=== PATIENT | male | born 1960 | race Caucasian/White ===

== ENCOUNTER 2018-01-24 16:36 | Inpatient (IN) ==
--- NOTE | 2018-01-24 18:01 | ED ---
HPI General Chief Complaint: Psychiatric Symptoms Stated Complaint: psych eval/dbpd Time Seen by Provider: 01/24/18 17:29 Source: patient Mode of arrival: ambulatory Limitations: no limitations History of Present Illness HPI Narrative: 57-year-old male presents to the emergency room under a Simmons act initiated by police. Patient was at his facility when the police were called on him. He denies suicidal or homicidal ideation. States he just wants to go home. Patient is acutely psychotic and difficult to get any meaningful history from. He denies any medical complaints or pain. MD complaint: other Duration: constant History of same: Yes Relieving factors: none Exacerbating factors: none Associated psychiatric symptoms: none Associated symptoms: denies other symptoms Treatments prior to arrival: none Related Data Home Medications Medication Instructions Recorded Confirmed Benadryl 50 mg PO HS 01/24/18 01/24/18 Synthroid 0.1 mg PO DAILY 01/24/18 01/24/18 chlorpromazine 50 mg PO BID 01/24/18 01/24/18 chlorpromazine 200 mg PO BID 01/24/18 01/24/18 olanzapine 20 mg PO HS 01/24/18 01/24/18 propranolol 10 mg PO BID 01/24/18 01/24/18 Allergies Allergy/AdvReac Type Severity Reaction Status Date / Time No Known Allergies Allergy Uncoded 01/14/15 21:16 Review of Systems ROS: all other systems reviewed are negative PMFSH Social History Social History Substance History: No History of Abuse Second Hand Smoke Exposure: No Smoking Status: Never smoker How Often Do You Have a Drink Containing Alcohol: Never Recent Travel in [facility] within the Last 8 Weeks: No Recent Out of Country Travel within the Last 8 Weeks: No Immunization History Tetanus Immunization: Unable to Assess Hx Influenza Vaccine This Season: Unable to Assess Exam Narrative Exam Narrative: GENERAL: Well-nourished, well-developed patient. SKIN: Focused skin assessment warm/dry. HEAD: Normocephalic. EYES: No scleral icterus. No injection or drainage. NECK: Supple, trachea midline. No JVD or lymphadenopathy. CARDIOVASCULAR: Regular rate and rhythm without murmurs, gallops, or rubs. RESPIRATORY: Breath sounds equal bilaterally. No accessory muscle use. PSYCHIATRIC: No delusional thought processes. No hallucinations. Psychotic. Course Initial Documented Vital Signs Temperature 98.7 F 01/24/18 16:49 Pulse Rate 101 H 01/24/18 16:49 Respiratory Rate 18 01/24/18 16:49 Blood Pressure 125/86 01/24/18 16:49 Pulse Oximetry 95 01/24/18 16:49 Last Documented Vital Signs Temperature 98.7 F 01/24/18 17:35 Pulse Rate 101 H 01/24/18 17:35 Respiratory Rate 18 01/24/18 17:35 Blood Pressure 125/86 01/24/18 16:49 Pulse Oximetry 95 01/24/18 17:35 Medical Decision Making MDM Narrative Medical decision making narrative: 57-year-old male presents to the emergency room under Simmons act. He is acutely psychotic and difficult to obtain information from. He is refusing labs.Denies any medical complaints. He is medically cleared for psychiatric evaluation. Patient will be admitted to the psychiatric service. Medical Screen Exam Complete: Yes Emergency Medical Condition: Yes Differential Diagnosis Differential Diagnosis: Schizophrenia, medication noncompliance, bipolar disorder Discharge Plan Discharge Disposition Patient Disposition: 30 Still Patient Discharge Condition Condition: Stable Physicians Team ED Provider: Goldie Conte ED Midlevel Provider: Kathie Hernandez Primary Care Provider: Primary Care Cassy Walker Attending Provider: Jaya Vu Status ED Status: Admitted Patient
--- NOTE | 2018-01-24 18:18 | ED ---
HPI - Psych - General Source: patient Mode of arrival: ambulatory Limitations: altered mental status - History of Present Illness Duration: constant Relieving factors: none Exacerbating factors: none Associated symptoms: denies other symptoms Treatments prior to arrival: none - General Chief Complaint: Psychiatric Symptoms Stated Complaint: psych eval/dbpd Time Seen by Provider: 01/24/18 17:29 - History of Present Illness HPI Narrative: This is a 57-year-old single, male who presents to this facility under Simmons act for being aggressive with staff and other residents. Patient is known to this facility with several previous psychiatric admissions. His last one was from February 25 - April 21, 2015. Reviewed electronic medical record and discussed case with staff. Patient was assessed and J105. He is extremely poor historian. His speech is disorganized and illogical at times. He is perseverating on his hunger and has been heard referring to it any time anyone walks past the door of his room. Seems to be internally stimulated as of her him speaking to himself when no one was around. He stood in the doorway of his room repeating "mine" while looking into the nurses station as his belongings were sorted. (Ellie Moran) - Related Data Home Medications Medication Instructions Recorded Confirmed Benadryl 50 mg PO HS 01/24/18 01/24/18 Synthroid 0.1 mg PO DAILY 01/24/18 01/24/18 chlorpromazine 50 mg PO BID 01/24/18 01/24/18 chlorpromazine 200 mg PO BID 01/24/18 01/24/18 olanzapine 20 mg PO HS 01/24/18 01/24/18 propranolol 10 mg PO BID 01/24/18 01/24/18 Allergies Allergy/AdvReac Type Severity Reaction Status Date / Time No Known Allergies Allergy Uncoded 01/14/15 21:16 Review of Systems All other systems reviewed negative except as stated in HPI PMFSH - History History Provided By: Medical Record - Medical History Medical History: Medical History (Last Reviewed 01/24/18 @ 18:15 by LATOSHA Worley) Altered mental state Gait disturbance Intellectual disability Malnutrition Mental retardation Seizure Thrombocytopenia - Tobacco History Second Hand Smoke Exposure: No Smoking Status: Never smoker - Alcohol History How Often Do You Have a Drink Containing Alcohol: Never - Substance Use History Substance History: No History of Abuse - Travel History Recent Travel in the [place] Within the Last 8 Weeks: No Recent Travel Out of the Country Within the Last 8 Weeks: No - Immunization History Tetanus Immunization: Unable to Assess Hx Influenza Vaccine This Season: Unable to Assess Psychiatric History - Psychiatric History Psychiatric Treatment History: History of Psychiatric Treatment History of Inpatient Treatment: Yes Firearms in Home: No Physical Exam - General Limitations: no limitations General appearance: anxious Mental Status Examination Appearance: Dirty, Disheveled, Malodorous Consciousness: Alert, Vigilant Orientation: Person Motor Activity: Normal gait Speech: Rapid, Incoherent (At times) Language: Word salad (At times), Perseveration (On food) Fund of Knowledge: Poor Attention and Concentration: Easily distracted Mood: Anxious Affect: Anxious Thought Process & Associations: Goal directed (On food) Thought Content: Other (Unable to assess) Hallucination Type: Other (Unable to assess) Initial Documented Vital Signs Temperature 98.7 F 01/24/18 16:49 Pulse Rate 101 H 01/24/18 16:49 Respiratory Rate 18 01/24/18 16:49 Blood Pressure 125/86 01/24/18 16:49 Pulse Oximetry 95 01/24/18 16:49 Last Documented Vital Signs Temperature 98.7 F 01/24/18 17:35 Pulse Rate 101 H 01/24/18 17:35 Respiratory Rate 18 01/24/18 17:35 Blood Pressure 125/86 01/24/18 16:49 Pulse Oximetry 95 01/24/18 17:35 MDM - Psych - MDM Narrative Medical decision making narrative: Given the extent of the patient's disorganization and his current state I am admitting him to a locked inpatient psychiatric unit for further evaluation and treatment as deemed necessary. (Ellie Moran)
[2018-01-24] MEDS ORDERED: PROPRANOLOL 10 MG PO SCH (21:00)
[2018-01-24] MEDS: Propranolol 10 MG Tablet PO SCH (21:00)
[2018-01-25] MEDS: Levothyroxine 100 MCG Tablet PO SCH (05:26)
[2018-01-25] MEDS: Propranolol 10 MG Tablet PO SCH ×2 (08:20→21:44)
[2018-01-25] MEDS ORDERED: SYNTHROID 0.1 MG PO SCH (09:00)
--- NOTE | 2018-01-25 12:55 | P.HPPSY ---
Provisional Diagnosis Admission Date: January 24, 2018 18:07 Emmett I.: 1. Schizophrenia, paranoid type, acute exacerbation Emmett II.: Deferred Competence Certification of Person's Competence To Provide Express and Informed Consent I have personally examined Emiliano Dunlap, a person being served at [facility] on, January 25, 2018 [id number]. Express and informed consent means consent voluntarily given in writing, by a competent person, after sufficient explanation and disclosure of the subject matter involved to enable the person to make a knowing and willful decision without any element of force, fraud, deceit, duress, or other form of constraint or coercion. This person is 18 years of age or older, is not now known to be incompetent to consent to treatment with a guardian advocate, and does not have a health care surrogate or proxy currently making medical treatment decisions. I have found this person to be one of the following: [] Competent to provide express and informed consent, as defined above, for voluntary admission to this facility and is competent to provide express and informed consent for treatment. He/she has the consistent capacity to make well reasoned, willful, and knowing decisions concerning his or her medical or mental health treatment. The person fully and consistently understands the purpose of the admission for examination/placement and is fully capable of personally exercising all rights assured [place] [X] Incompetent to provide express and informed consent to voluntary admission, and this is incompetent to provide express and informed consent to treatment. The person must be transferred to involuntary status and a petition for a guardian advocate filed with the Circuit Court. [] Refusing to provide express and informed consent to voluntary admission but is competent to provide express and informed consent for treatment. The person must be discharged or transferred to involuntary status. Form shall be completed within 24 hours of a person's arrival at the receiving facility and filed in the clinical record of each person: 1. Admitted on a voluntary basis 2. Permitted to provide express and informed consent to his/her own treatment 3. Allowed to transfer from involuntary to voluntary status 4. Prior to permitting a person to consent to his or her own treatment after having been previously found incompetent to consent to treatment. History of Present Illness Capacity: Lacks capacity Chief Complaint: Psychosis History of Present Illness: Mr. Dunlap is a 57-year-old male with a history of schizophrenia who presents under a Simmons act by law enforcement alleging that the patient was "openly defiant to staff" at his assisted living facility and that "his actions were disrupting the facility and other residents." Patient was evaluated by the psychiatric nurse practitioner in the emergency department. Reviewing the EMR, I note that the patient was admitted most recently here under my care in 2014, after which the patient was sent to the [facility]. Patient seen and examined. Chart reviewed. Case discussed with nursing staff. Case discussed with counselor who has reached out the patient's facility. Per counselor, patient was allegedly making threats of harm to self and other residents prior to being Simmons acted, although it is unclear what the antecedents of this alleged behavior were. On my examination today, the patient presents as hypoverbal and disheveled. Mood is "fine, yes." He denies any hopelessness, worthlessness or guilt. He denies any racing thoughts or other manic symptoms. He denies any audiovisual hallucinations but appears internally preoccupied. He denies any suicidal or homicidal ideation, intent or plan although it is unclear whether the patient is reliable to contract for safety. No noble delusional material. Patient is not interested in extended interview and asks to be left alone so that he can get some sleep. No acute physical complaints. Past psychiatric history: The patient has a history of schizophrenia with inpatient and states psychiatric hospitalization as noted above. The patient denies any recent psychiatric admissions or suicide attempts, although he is likely an unreliable historian. He is unable to tell me who his outpatient psychiatrist is. Family history: Patient is unsure of his family psychiatric history. Chemical dependency history: Patient denies any abuse of drugs or alcohol. Social history: Patient is a resident of [facility]. Limited social history from patient as he answers frequently "I am not sure." Spoke with patient's brother Dr. Ranjeet Dunlap and [id number] Suly at the numbers listed in the EMR. Dr. Dunlap reports that he last saw the patient a couple of weeks ago shortly after he had been discharged from the [facility] to [facility]. He found the patient to be paranoid and delusional believing that people were looking at him through the window. He was dismissive of family members. He was frankly responding to internal stimuli. Dr. Dunlap likens his state during that encounter as to when he was completely unmedicated. He is supportive of inpatient psychiatric hospitalization at this time for stabilization. We discussed the patient's legal status and plan for [place] court next . He provides consent for treatment plan as outlined below. I spent approximately 15 minutes in telephone consultation with Dr. Dunlap. - Inpatient Certification I certify that the inpatient services were ordered in accordance with Medicare regulations governing the order. This includes certification that hospital inpatient services are reasonable and necessary and in the case of services not specified as inpatient-only under 42 CFR 419.22(n), that they are appropriately provided as inpatient services in accordance to with the 2-midnight benchmark under 43 CFR 412.3(e) I certify that inpatient psychiatric hospital services are medically necessary. Evaluation and treatment and/or diagnostic testing are expected to improve the patient's condition. The patient needs on a daily basis, active treatment furnished directly by or requiring the supervision of inpatient psychiatric facility personnel. Estimated Total Length of Stay (Days): 9 (7-9) Plans for Post Hospital Care: Not yet determined Review of Systems unobtainable due to mental condition PMFSH - Medical History Medical History: Medical History (Last Reviewed 01/24/18 @ 21:19 by Tierra Maldonado RN) Altered mental state Gait disturbance Intellectual disability Malnutrition Mental retardation Seizure Thrombocytopenia Quality Measures - Patient Strengths Patient's strengths (minimum of 2): Supportive family. In a monitored setting. Medications and Allergies Active Medications: Active Medications Al Hydrox/Mg Hydrox/Simethicone (Mag-Al Plus Susp Liq) 30 ml PO Q6H PRN PRN Reason: DYSPEPSIA Levothyroxine Sodium (Synthroid) 100 mcg PO DAILY@0600 [facility] Last Admin: 01/25/18 05:26 Dose: 100 mcg Propranolol HCl (Inderal) 10 mg PO BID [facility] Last Admin: 01/25/18 08:20 Dose: 10 mg Allergies Allergy/AdvReac Type Severity Reaction Status Date / Time No Known Allergies Allergy Uncoded 01/14/15 21:16 Home Medications Medication Instructions Recorded Confirmed Type Benadryl 50 mg PO HS 01/24/18 01/24/18 History Synthroid 0.1 mg PO DAILY 01/24/18 01/24/18 History chlorpromazine 50 mg PO BID 01/24/18 01/24/18 History chlorpromazine 200 mg PO BID 01/24/18 01/24/18 History olanzapine 20 mg PO HS 01/24/18 01/24/18 History propranolol 10 mg PO BID 01/24/18 01/24/18 History Results - Labs CBC & Chem 7: 01/25/18 13:53 01/25/18 13:53 Labs: No laboratories were obtained in the emergency department. I have ordered a stat CBC, CMP and TSH as well as an EKG. Exam Vital signs: Vital Signs 01/24/18 16:49 01/24/18 17:35 01/24/18 21:43 Temperature 98.7 F 98.7 F 97.8 F Pulse Rate 101 H 101 H 79 Respiratory Rate 18 18 18 Blood Pressure 125/86 117/76 Pulse Oximetry 95 95 97 01/25/18 06:08 Temperature 97.2 F L Pulse Rate 84 Respiratory Rate 18 Blood Pressure 120/72 Pulse Oximetry 96 Intake & Output 01/24/18 01/25/18 01/25/18 18:59 06:59 18:59 Weight 72.575 kg 60.1 kg Other: Weight On Admission 60.1 kg Narrative: Physical examination completed by ED provider. On my examination today, the patient appears to be in no acute physical distress. No motor abnormalities noted. Labs and vital signs reviewed. Mental Status Examination Appearance: Disheveled Consciousness: Alert Orientation: Person (At least) Motor Activity: Other (No motor abnormalities noted) Speech: Hesitant Language: Other (Vague) Fund of Knowledge: Adequate Attention and Concentration: Easily distracted Memory: Impaired (Psychosis likely interferes) Mood: Other (Calm) Affect: Flat Thought Process & Associations: Other (Slowed) Thought Content: Thought blocking, Other (Poverty of thought) Hallucination Type: Other (Internally stimulated) Delusion Type: None Suicidal Ideation: No Suicidal Plan: No Suicidal Intention: No Homicidal Ideation: No Homicidal Plan: No Homicidal Intention: No Insight: Poor Judgment: Poor Assessment and Plan - Assessment (1) Schizophrenia Code(s): F20.9 - Schizophrenia, unspecified Status: Acute - Plan Plan: 57-year-old male with psychiatric history as detailed above who presents under a Simmons act by law enforcement. On my examination today, the patient presents as quite hypoverbal and flat. Collateral information obtained by the counselor from patient's facility suggests that he may have been threatening self and others. Collateral information from patient's brother indicates that the patient appeared to be decompensated with respect to his psychotic illness during recent contact a few weeks ago. Patient requires psychiatric hospitalization at this time for safety, observation and stabilization. Admit inpatient. Involuntary status. I have completed first opinion. Consult for second opinion. Request healthcare surrogate and guardian advocate. MAR from patient's facility reviewed. I will plan to discontinue patient's chlorpromazine and replace with a different typical antipsychotic, most likely Trilafon, Navane or Loxapine. I will continue patient's Zyprexa and Benadryl as ordered. Continue Inderal and Synthroid. Follow-up TSH along with other laboratories. Ativan as needed for anxiety. Cogentin as needed for EPS. Vitals every shift. Counselor to see. Disposition planning. Estimated length of stay: 7-9 days. Justification for Continued Inpatient Stay: As above Discharge Planning: Pending psychiatric stabilization. Request Healthcare Surrogate/Guardian Advocate?: Yes (1) Schizophrenia Qualifiers: Schizophrenia type: paranoid schizophrenia Qualified Code(s): F20.0 - Paranoid schizophrenia
[2018-01-25 14:14] LABS: Baso # (Auto) 0.1 th/mm3 (0.0-0.2); Baso % (Auto) 1.1 % (0.0-2.0); Eos # (Auto) 0.2 th/mm3 (0.0-0.4); Eos % (Auto) 3.3 % (0.0-4.0); Hematocrit 38.8 % (39.0-51.0); Hemoglobin 13.1 gm/dL (13.0-17.0); Lymph # (Auto) 1.3 th/mm3 (1.0-4.8); Lymph % (Auto) 17.8 % (9.0-44.0); Mean Corpuscular HGB Conc 33.8 % (32.0-36.0); Mean Corpuscular Volume 88.8 fL (80.0-100.0); Mean Platelet Volume 9.7 fL (7.0-11.0); Mono # (Auto) 0.6 th/mm3 (0.0-0.9); Neut % (Auto) 69.8 % (16.0-70.0); Platelet Count 229 th/mm3 (150-450); Red Blood Count 4.37 mil/mm3 (4.50-5.90); Red Cell Distribution Width 13.7 % (11.6-17.2); White Blood Count 7.1 th/mm3 (4.0-11.0)
[2018-01-25 14:29] LABS: Albumin 3.7 g/dL (3.4-5.0); Anion Gap 7 meq/L (5-15); Aspartate Aminotransferase 15 U/L (15-37); Blood Urea Nitrogen 12 mg/dL (7-18); Calcium 9.1 mg/dL (8.5-10.1); Carbon Dioxide 26.8 meq/L (21.0-32.0); Chloride 108 meq/L (98-107); Glomerular Filtration Rate 86 mL/min (>89); Glucose,Random 67 mg/dL (74-106); Potassium 4.1 meq/L (3.5-5.1); Sodium 142 meq/L (136-145)
[2018-01-25] MEDS ORDERED: Benztropine Inj 2 MG/2 ML Ampul IM PRN (14:35)
[2018-01-25 14:39] LABS: Alanine Aminotransferase 21 U/L (12-78); Alkaline Phosphatase 57 U/L (45-117)
[2018-01-25] MEDS ORDERED: Dextrose 50% in Water 50 ML Vial IV.PUSH PRN (15:05)
[2018-01-25] MEDS: LORazepam 1 MG Tablet PO PRN (15:49)
[2018-01-25] MEDS: Acetaminophen 325 MG Tablet PO PRN (17:31)
[2018-01-25] MEDS: OLANZapine 10 MG Tablet PO SCH (21:45)
[2018-01-26] MEDS: Levothyroxine 100 MCG Tablet PO SCH (06:08)
[2018-01-26] MEDS: Propranolol 10 MG Tablet PO SCH ×2 (09:21→21:15)
[2018-01-26] MEDS: Acetaminophen 325 MG Tablet PO PRN ×2 (10:11→15:55)
[2018-01-26 10:45] LABS: Carbon Dioxide 31.1 meq/L (21.0-32.0); Potassium 4.2 meq/L (3.5-5.1)
[2018-01-26 10:46] LABS: Chol/HDL Ratio 4.52 Ratio; HDL Cholesterol 32.9 mg/dL (40.0-60.0)
--- NOTE | 2018-01-26 13:02 | ECG ---
Date Performed: 01/25/2018 Time Performed: 13:37:41 PTAGE: 57 years EKG: Sinus rhythm ARTIFACT ABNORMAL ECG Since PREVIOUS TRACING , no significant change noted PREVIOUS TRACIN01/15/2015 16.35 DOCTOR: Moy Ennis Interpretating Date/Time 01/26/2018 13:01:52
--- NOTE | 2018-01-26 14:17 | P.PNPSY ---
Subjective Chief Complaint: Psychosis Remarks: Patient is seen in day room with floor staff, patient continues diffusely confused and wandering somewhat intrusive. Chart reviewed. Patient compliant medications. So far he is tolerating the Navane without difficulty. When asked about voices he became quite defensive somewhat irritable with me and then walked away for now continue treatment Review of Systems All other systems reviewed negative except as stated in HPI Mental Status Examination Appearance: Disheveled Consciousness: Alert Orientation: Person (At least) Motor Activity: Other (No motor abnormalities noted) Speech: Hesitant Language: Other (Vague) Fund of Knowledge: Adequate Attention and Concentration: Easily distracted Memory: Impaired (Psychosis likely interferes) Mood: Other (Calm) Affect: Flat Thought Process & Associations: Other (Slowed) Thought Content: Thought blocking, Other (Poverty of thought) Hallucination Type: Other (Internally stimulated) Delusion Type: None Suicidal Ideation: No Suicidal Plan: No Suicidal Intention: No Homicidal Ideation: No Homicidal Plan: No Homicidal Intention: No Insight: Poor Judgment: Poor Assessment and Plan - Assessment (1) Schizophrenia Code(s): F20.9 - Schizophrenia, unspecified Status: Acute - Plan Plan: Patient remains quite psychotic irritable paranoid, complaint medication Justification for Continued Inpatient Stay: At this time patient would decompensate a place to the lower level of care Discharge Planning: To be determined Request Healthcare Surrogate/Guardian Advocate?: Yes (1) Schizophrenia Qualifiers: Schizophrenia type: paranoid schizophrenia Qualified Code(s): F20.0 - Paranoid schizophrenia
--- NOTE | 2018-01-26 14:37 | P.CONPSY ---
Provisional Diagnosis Admission Date: January 24, 2018 18:07 [place] I.: 1. Schizophrenia, paranoid type, acute exacerbation [place] II.: Deferred History of Present Illness Service: Psychiatry Primary Care Provider: No Primary Care Physician Family Provider: No Primary Care Physician History of Present Illness: Mr. Dunlap is a 57-year-old male with a history of schizophrenia who presents under a Simmons act by law enforcement alleging that the patient was "openly defiant to staff" at his assisted living facility and that "his actions were disrupting the facility and other residents." Patient was evaluated by the psychiatric nurse practitioner in the emergency department. Reviewing the EMR, I note that the patient was admitted most recently here under my care in 2014, after which the patient was sent to the [facility]. Patient seen and examined. Chart reviewed. Case discussed with nursing staff. Case discussed with counselor who has reached out the patient's facility. Per counselor, patient was allegedly making threats of harm to self and other residents prior to being Simmons acted, although it is unclear what the antecedents of this alleged behavior were. On my examination today, the patient presents as hypoverbal and disheveled. Mood is "fine, yes." He denies any hopelessness, worthlessness or guilt. He denies any racing thoughts or other manic symptoms. He denies any audiovisual hallucinations but appears internally preoccupied. He denies any suicidal or homicidal ideation, intent or plan although it is unclear whether the patient is reliable to contract for safety. No noble delusional material. Patient is not interested in extended interview and asks to be left alone so that he can get some sleep. No acute physical complaints. The patient is a 57-year-old single, male who presents to this facility under Simmons act for being aggressive with staff and other residents. Patient is known to this facility with several previous psychiatric admissions. His last one was from February 25 - April 21, 2015. Patient was consulted to me for second opinion he is extremely poor historian. His speech is disorganized and illogical at times. He is perseverating on his hunger and has been heard referring to it any time anyone walks past the door of his room. Seems to be internally stimulated as of her him speaking to himself when no one was around. He stood in the doorway of his room repeating "mine" while looking into the nurses station as his belongings were sorted. ON LICENSE OF [facility] - History History Provided By: Patient, Medical Record - Medical History Medical History: Medical History (Last Reviewed 01/24/18 @ 21:19 by Tierra Maldonado RN) Altered mental state Gait disturbance Intellectual disability Malnutrition Mental retardation Seizure Thrombocytopenia - Tobacco History Tobacco Use In Past 30 Days: No - Substance Use History Substance History: No History of Abuse - Travel History Recent Travel in the [place] Within the Last 8 Weeks: No Recent Travel Out of the Country Within the Last 8 Weeks: No - Immunization History Tetanus Immunization: Unable to Assess Hx Influenza Vaccine This Season: Unable to Assess Medications and Allergies Active Medications: Active Medications Acetaminophen (Tylenol) 650 mg PO Q4H PRN PRN Reason: Pain 1-5 or Temp >101F Last Admin: 01/26/18 10:11 Dose: 650 mg Al Hydrox/Mg Hydrox/Simethicone (Mag-Al Plus Susp Liq) 30 ml PO Q6H PRN PRN Reason: DYSPEPSIA Al Hydroxide/Mg Hydroxide (Milk Of Magnesia Liq) 30 ml PO Q12H PRN PRN Reason: Mild Constipation Benztropine Mesylate (Cogentin) 1 mg PO Q12H PRN PRN Reason: EXTRA PYRAMIDAL SYMPTOMS Benztropine Mesylate (Cogentin Inj) 1 mg IM Q12H PRN PRN Reason: EXTRA PYRAMIDAL SYMPTOMS Dextrose (D50w Vial) 50 ml IV.PUSH UNSCH PRN PRN Reason: PER HYPOGLYCEMIA PROTOCOL Diphenhydramine HCl (Benadryl) 50 mg PO [facility] Last Admin: 01/25/18 21:44 Dose: 50 mg Glucagon (Glucagon Inj) 1 mg OTHER PRN PRN PRN Reason: for Hypoglycemia Protocol Levothyroxine Sodium (Synthroid) 100 mcg PO DAILY@0600 [facility] Last Admin: 01/26/18 06:08 Dose: 100 mcg Lorazepam (Ativan) 1 mg PO Q6H PRN PRN Reason: MODERATE TO SEVERE ANXIETY Last Admin: 01/25/18 15:49 Dose: 1 mg Lorazepam (Ativan Inj) 1 mg IM Q6H PRN PRN Reason: MODERATE TO SEVERE ANXIETY Olanzapine (Zyprexa) 20 mg PO [facility] Last Admin: 01/25/18 21:45 Dose: 20 mg Propranolol HCl (Inderal) 10 mg PO BID [facility] Last Admin: 01/26/18 09:21 Dose: 10 mg Thiothixene (Navane) 2 mg PO DAILY@ [facility] Last Admin: 01/26/18 09:21 Dose: 2 mg Allergies Allergy/AdvReac Type Severity Reaction Status Date / Time No Known Allergies Allergy Uncoded 01/14/15 21:16 Home Medications Medication Instructions Recorded Confirmed Type Benadryl 50 mg PO HS 01/24/18 01/24/18 History Synthroid 0.1 mg PO DAILY 01/24/18 01/24/18 History chlorpromazine 50 mg PO BID 01/24/18 01/24/18 History chlorpromazine 200 mg PO BID 01/24/18 01/24/18 History olanzapine 20 mg PO HS 01/24/18 01/24/18 History propranolol 10 mg PO BID 01/24/18 01/24/18 History Exam Vital signs: Vital Signs 01/25/18 18:11 01/26/18 06:00 Temperature 98.2 F 98.0 F Pulse Rate 86 78 Respiratory Rate 18 18 Blood Pressure 111/67 111/59 L Pulse Oximetry 99 98 Mental Status Examination Appearance: Disheveled Consciousness: Alert Orientation: Person (At least) Motor Activity: Other (No motor abnormalities noted) Speech: Hesitant Language: Other (Vague) Fund of Knowledge: Adequate Attention and Concentration: Easily distracted Memory: Impaired (Psychosis likely interferes) Mood: Other (Calm) Affect: Flat Thought Process & Associations: Other (Slowed) Thought Content: Thought blocking, Other (Poverty of thought) Hallucination Type: Other (Internally stimulated) Delusion Type: None Suicidal Ideation: No Suicidal Plan: No Suicidal Intention: No Homicidal Ideation: No Homicidal Plan: No Homicidal Intention: No Insight: Poor Judgment: Poor Assessment and Plan - Assessment (1) Schizophrenia Code(s): F20.9 - Schizophrenia, unspecified Status: Acute - Plan Plan: I have seen and examined this patient, reviewed documentation, I agree and concur with Dr. William assessment and plan. Consult appreciated. Justification for Continued Inpatient Stay: continue admission Request Healthcare Surrogate/Guardian Advocate?: Yes (1) Schizophrenia Qualifiers: Schizophrenia type: paranoid schizophrenia Qualified Code(s): F20.0 - Paranoid schizophrenia
[2018-01-26 14:41] LABS: Hemoglobin A1c 5.6 % (4.3-6.0)
[2018-01-26] MEDS: OLANZapine 10 MG Tablet PO SCH (21:16)
[2018-01-27] MEDS: Levothyroxine 100 MCG Tablet PO SCH (06:16)
[2018-01-27] MEDS: Propranolol 10 MG Tablet PO SCH ×2 (08:42→20:50)
--- NOTE | 2018-01-27 11:15 | P.PNPSY ---
Subjective Chief Complaint: Psychosis Remarks: Pt seen and discussed with staff. Chart reviewed. Pt was admitted due to paranoia and aggressive behavior and threats to harm others. He denies SI/HI today. Staff report that pt has been disorganized and engaging in bizarre behavior on unit. He has been disengaged and guarded with staff. He is compliant with medications. No SI/HI Mental Status Examination Appearance: Disheveled Consciousness: Alert Orientation: Person (At least) Motor Activity: Other (No motor abnormalities noted) Speech: Hesitant Language: Other (Vague) Fund of Knowledge: Adequate Attention and Concentration: Easily distracted Memory: Impaired (Psychosis likely interferes) Mood: Other (Calm) Affect: Flat Thought Process & Associations: Disorganized, Other (Slowed) Thought Content: Thought blocking, Other (Poverty of thought) Hallucination Type: Other (Internally stimulated) Delusion Type: None Suicidal Ideation: No Suicidal Plan: No Suicidal Intention: No Homicidal Ideation: No Homicidal Plan: No Homicidal Intention: No Insight: Poor Judgment: Poor Assessment and Plan - Assessment (1) Schizophrenia Code(s): F20.9 - Schizophrenia, unspecified Status: Acute - Plan Plan: Continue current tx plan Justification for Continued Inpatient Stay: impairments in reality testing Request Healthcare Surrogate/Guardian Advocate?: Yes (1) Schizophrenia Qualifiers: Schizophrenia type: paranoid schizophrenia Qualified Code(s): F20.0 - Paranoid schizophrenia
[2018-01-27] MEDS: Acetaminophen 325 MG Tablet PO PRN ×2 (13:07→19:46)
[2018-01-27] MEDS: OLANZapine 10 MG Tablet PO SCH (20:49)
[2018-01-28] MEDS: Levothyroxine 100 MCG Tablet PO SCH (06:32)
[2018-01-28] MEDS: Propranolol 10 MG Tablet PO SCH ×2 (08:39→21:14)
--- NOTE | 2018-01-28 10:56 | P.PNPSY ---
Subjective Chief Complaint: Psychosis Remarks: PT seen and discussed with staff. He remains bizarre and disorganized in thought process. He rambles with pressured, nonsensical speech. He had to be redirected due to coming out of room naked. He is compliant with medications. Mental Status Examination Appearance: Disheveled Consciousness: Alert Orientation: Person (At least) Motor Activity: Other (No motor abnormalities noted) Speech: Hesitant Language: Other (Vague) Fund of Knowledge: Adequate Attention and Concentration: Easily distracted Memory: Impaired Mood: Other (Calm) Affect: Flat Thought Process & Associations: Disorganized Thought Content: Bizarre thinking Hallucination Type: Other (Internally stimulated) Delusion Type: None Suicidal Ideation: No Suicidal Plan: No Suicidal Intention: No Homicidal Ideation: No Homicidal Plan: No Homicidal Intention: No Insight: Poor Judgment: Poor Assessment and Plan - Assessment (1) Schizophrenia Code(s): F20.9 - Schizophrenia, unspecified Status: Acute - Plan Plan: Continue current tx plan Justification for Continued Inpatient Stay: impairments in self care and reality testing Request Healthcare Surrogate/Guardian Advocate?: Yes (1) Schizophrenia Qualifiers: Schizophrenia type: paranoid schizophrenia Qualified Code(s): F20.0 - Paranoid schizophrenia
[2018-01-28] MEDS: Acetaminophen 325 MG Tablet PO PRN (11:37)
[2018-01-28] MEDS: OLANZapine 10 MG Tablet PO SCH (21:14)
[2018-01-28] MEDS: LORazepam 1 MG Tablet PO PRN (23:24)
[2018-01-29] MEDS: Levothyroxine 100 MCG Tablet PO SCH (05:05)
[2018-01-29] MEDS: Propranolol 10 MG Tablet PO SCH ×2 (08:19→20:35)
--- NOTE | 2018-01-29 10:38 | P.PNPSY ---
Subjective Chief Complaint: Psychosis Remarks: Patient seen and examined with counselor and nurse. Chart reviewed. Case discussed with nursing staff. Patient noted by nurse to have mumbled and garbled speech. When he does speak clearly, this is primarily echolalia. He is noted to be disheveled and dirty and has been hoarding papers and dog food dough mixer items in his room. He also ran down the hallway naked per nursing staff. When I initially endeavor to examined the patient he is in the bathroom. He has reportedly been there for some time. He is resistant to coming out. He finally does go to his room, where I see patient with staff. He remains disheveled. He tells me he does not want to speak this morning. He appears internally preoccupied and is paranoid. He denies any SI or HI but seems unreliable to contract for safety. No reported side effects from medications. No physical complaints. I do not appreciate any motoric abnormalities, but the nursing staff reports that patient has had some tongue rolling movements. I have requested that nurse provide the patient with mello Che to see if this helps with the movements. Floor staff also brings to my attention that the patient left several bloody toilet tissues in the bathroom , and he may have bleeding per rectum. I will consult the hospitalist for this issue. Vital Signs Pulse Resp BP Pulse Ox 01/29/18 06:00 79 18 128/75 95 01/28/18 17:39 104 H 17 136/70 97 Intake and Output 01/28/18 01/29/18 01/29/18 22:59 06:59 14:59 Other: Weight 60.8 kg Labs reviewed. No new labs. Review of Systems unobtainable due to mental condition Mental Status Examination Appearance: Disheveled Consciousness: Alert Orientation: Person Motor Activity: Other (I can appreciate no motor abnormalities) Speech: Hesitant Language: Other (Rambling, some echolalia) Fund of Knowledge: Adequate Attention and Concentration: Easily distracted Memory: Impaired (Psychosis interferes) Mood: Anxious Affect: Blunt, Anxious Thought Process & Associations: Loose associations, Tangential Thought Content: Bizarre thinking Hallucination Type: Other (Remains internally stimulated) Delusion Type: Paranoid Suicidal Ideation: No Suicidal Plan: No Suicidal Intention: No Homicidal Ideation: No Homicidal Plan: No Homicidal Intention: No Insight: Poor Judgment: Poor Assessment and Plan - Assessment (1) Schizophrenia Code(s): F20.9 - Schizophrenia, unspecified Status: Acute - Plan Plan: Titrate Navane to 3mg TID to target psychosis. Continue Zyprexa as ordered. Provide with Cogentin p.r.n. now. To consider scheduled anticholinergic if motoric side effects become more evident or problematic. Consult hospitalist for possible bleeding per rectum. Check CBC and stool guaiac. Continue to monitor on the inpatient unit. Continue other medications and care as ordered. Justification for Continued Inpatient Stay: Med changes. Impairment in reality construction. High risk for decompensation in less restrictive environment. Discharge Planning: Pending psychiatric stabilization Request Healthcare Surrogate/Guardian Advocate?: Yes (1) Schizophrenia Qualifiers: Schizophrenia type: paranoid schizophrenia Qualified Code(s): F20.0 - Paranoid schizophrenia
--- NOTE | 2018-01-29 13:50 | P.CON ---
History of Present Illness Service: [facility] Consult date: 01/29/18 Requesting Physician: Jaya Vu Reason for Consult: Rectal Bleeding Primary Care Provider: No Primary Care Physician Family Provider: No Primary Care Physician Chief Complaint: "Nothing" History of Present Illness: Patient is a 57-year-old male who denies any medical or surgical history who initially came into the hospital as a Simmons act initiated by police for aggressive behavior with staff and residents in his facility. Patient is admitted to inpatient psychiatry unit for further evaluation. Consulted for rectal bleed. Patient seen today laying in bed. Nursing states that he was in the bathroom for about 20 minutes this morning and when he stood up drips of blood is coming out of his rectum and he was walking around with. Patient denies the incident. States he does not want to be seen or examined. States that nothing is wrong with his rectum. Patient states "I do not want you to examine me or touch." Appears aggressive and irritable. Denies pain/ discomfort. Denies bleeding. Review of Systems unobtainable due to mental condition PMFSH - History History Provided By: Patient, Medical Record - Medical / Surgical Hx Neg / Unobtainable Surgical History: Unable to Obtain - Medical History Medical History: Medical History (Last Updated 01/29/18 @ 16:51 by LATOSHA Edwards) Altered mental state Gait disturbance Intellectual disability Malnutrition Mental retardation Patient denies medical problems Seizure Thrombocytopenia - Family History Family History: Family History (Last Updated 01/29/18 @ 16:51 by LATOSHA Edwards) Other Patient denies significant medical history - Tobacco History Tobacco Use In Past 30 Days: No - Substance Use History Substance History: No History of Abuse - Travel History Recent Travel in the [facility] Within the Last 8 Weeks: No Recent Travel Out of the Country Within the Last 8 Weeks: No - Immunization History Tetanus Immunization: Unable to Assess Hx Influenza Vaccine This Season: Unable to Assess Medications and Allergies Active Medications: Active Medications Acetaminophen (Tylenol) 650 mg PO Q4H PRN PRN Reason: Pain 1-5 or Temp >101F Last Admin: 01/28/18 11:37 Dose: 650 mg Al Hydrox/Mg Hydrox/Simethicone (Mag-Al Plus Susp Liq) 30 ml PO Q6H PRN PRN Reason: DYSPEPSIA Al Hydroxide/Mg Hydroxide (Milk Of Magnesia Liq) 30 ml PO Q12H PRN PRN Reason: Mild Constipation Benztropine Mesylate (Cogentin) 1 mg PO Q12H PRN PRN Reason: EXTRA PYRAMIDAL SYMPTOMS Last Admin: 01/29/18 10:33 Dose: 1 mg Benztropine Mesylate (Cogentin Inj) 1 mg IM Q12H PRN PRN Reason: EXTRA PYRAMIDAL SYMPTOMS Dextrose (D50w Vial) 50 ml IV.PUSH UNSCH PRN PRN Reason: PER HYPOGLYCEMIA PROTOCOL Diphenhydramine HCl (Benadryl) 50 mg PO [facility] Last Admin: 01/28/18 21:14 Dose: 50 mg Glucagon (Glucagon Inj) 1 mg OTHER PRN PRN PRN Reason: for Hypoglycemia Protocol Levothyroxine Sodium (Synthroid) 100 mcg PO DAILY@0600 [facility] Last Admin: 01/29/18 05:05 Dose: 100 mcg Lorazepam (Ativan) 1 mg PO Q6H PRN PRN Reason: MODERATE TO SEVERE ANXIETY Last Admin: 01/28/18 23:24 Dose: 1 mg Lorazepam (Ativan Inj) 1 mg IM Q6H PRN PRN Reason: MODERATE TO SEVERE ANXIETY Olanzapine (Zyprexa) 20 mg PO [facility] Last Admin: 01/28/18 21:14 Dose: 20 mg Propranolol HCl (Inderal) 10 mg PO BID [facility] Last Admin: 01/29/18 08:19 Dose: 10 mg Thiothixene (Navane) 3 mg PO DAILY@,, [facility] Allergies Allergy/AdvReac Type Severity Reaction Status Date / Time No Known Allergies Allergy Uncoded 01/14/15 21:16 Home Medications Medication Instructions Recorded Confirmed Type Benadryl 50 mg PO HS 01/24/18 01/24/18 History Synthroid 0.1 mg PO DAILY 01/24/18 01/24/18 History chlorpromazine 50 mg PO BID 01/24/18 01/24/18 History chlorpromazine 200 mg PO BID 01/24/18 01/24/18 History olanzapine 20 mg PO HS 01/24/18 01/24/18 History propranolol 10 mg PO BID 01/24/18 01/24/18 History Physical Exam Vital signs: Vital Signs 01/28/18 17:39 01/29/18 06:00 Pulse Rate 104 H 79 Respiratory Rate 17 18 Blood Pressure 136/70 128/75 Pulse Oximetry 97 95 Intake & Output 01/28/18 01/29/18 01/29/18 18:59 06:59 18:59 Weight 60.8 kg Narrative: GENERAL: This is a thin appearing male. Irritable. Agitated with questions. SKIN: Warm and dry. HEENT: Normocephalic. Nose without bleeding. Airway patent. MUSCULOSKELETAL: Extremities without clubbing, cyanosis, or edema. NEUROLOGICAL: Awake and alert. Moves all extremities. Normal speech. Assessment and Plan - Plan Patient is a 57-year-old male who denies any medical or surgical history who initially came into the hospital as a Simmons act initiated by police for aggressive behavior with staff and residents in his facility. Patient is admitted to inpatient psychiatry unit for further evaluation. Consulted for rectal bleed. Schizophrenia -Managed by psychiatry team Rectal Bleed -Unable to examine -H/H within normal yesterday -Recheck tomorrow -Check stool for Hemoccult -Anusol for possible hemorrhoid DVT prop ambulatory Code Status: Full code Discussed Condition With: Nurse Discharge Planning: DC disposition by primary team
[2018-01-29] MEDS: Senna/Docusate Sodium 8.6/50 MG Tablet PO SCH ×2 (15:28→20:33)
[2018-01-29] MEDS: OLANZapine 10 MG Tablet PO SCH (20:36)
[2018-01-30] MEDS: Levothyroxine 100 MCG Tablet PO SCH (05:24)
[2018-01-30] MEDS: Propranolol 10 MG Tablet PO SCH ×2 (10:16→20:02)
[2018-01-30] MEDS: Senna/Docusate Sodium 8.6/50 MG Tablet PO SCH ×2 (10:17→20:03)
[2018-01-30 10:24] LABS: Baso # (Auto) 0.1 th/mm3 (0.0-0.2); Baso % (Auto) 0.6 % (0.0-2.0); Eos # (Auto) 0.1 th/mm3 (0.0-0.4); Eos % (Auto) 0.5 % (0.0-4.0); Hematocrit 47.1 % (39.0-51.0); Hemoglobin 15.6 gm/dL (13.0-17.0); Lymph # (Auto) 1.5 th/mm3 (1.0-4.8); Lymph % (Auto) 11.3 % (9.0-44.0); Mean Corpuscular HGB Conc 33.1 % (32.0-36.0); Mean Corpuscular Hemoglobin 30.2 pg (27.0-34.0); Mean Corpuscular Volume 91.1 fL (80.0-100.0); Mean Platelet Volume 9.8 fL (7.0-11.0); Mono # (Auto) 0.7 th/mm3 (0.0-0.9); Mono % (Auto) 5.4 % (0.0-8.0); Neut # (Auto) 10.7 th/mm3 (1.8-7.7); Neut % (Auto) 82.2 % (16.0-70.0); Platelet Count 272 th/mm3 (150-450); Red Blood Count 5.18 mil/mm3 (4.50-5.90); Red Cell Distribution Width 14.1 % (11.6-17.2)
[2018-01-30 10:45] LABS: Anion Gap 10 meq/L (5-15); Blood Urea Nitrogen 22 mg/dL (7-18); Calcium 9.1 mg/dL (8.5-10.1); Carbon Dioxide 23.8 meq/L (21.0-32.0); Chloride 106 meq/L (98-107); Glomerular Filtration Rate Greater Than 89 mL/min (>89); Glucose,Random 109 mg/dL (74-106); Potassium 3.7 meq/L (3.5-5.1); Sodium 140 meq/L (136-145)
--- NOTE | 2018-01-30 12:14 | P.PNPSY ---
Subjective Chief Complaint: Psychosis Remarks: Patient seen and examined. Chart reviewed. Nutritional data reviewed. Patient has been eating well except he did refuse breakfast this morning. Case discussed with nursing staff. Case discussed in treatment team. On my examination today, the patient is seclusive to room. He is resistant to interview but does answer some questions when asked. He denies audiovisual hallucinations but does appear internally stimulated. He is paranoid. Denies side effects from medications. No physical complaints. Spoke with patient's brother/HCS by phone regarding patient's case. We discussed patient's progress on the unit from a psychiatric standpoint and also review recent hospitalist consultation and lab findings. We review of psychopharmacologic changes. Brother remains supportive of state hospitalization, noting that patient has seemed to do the best there. I spent approximately 10 minutes in telephone consultation with patient's brother. Vital Signs Temp Pulse Resp BP Pulse Ox 01/29/18 17:16 97.9 F 91 H 17 117/76 97 Laboratory Results - last 24 hr 01/30/18 01/30/18 09:38 09:38 WBC 13.0 H RBC 5.18 Hgb 15.6 Hct 47.1 MCV 91.1 MCH 30.2 MCHC 33.1 RDW 14.1 Plt Count 272 MPV 9.8 Neut % (Auto) 82.2 H Lymph % (Auto) 11.3 [place] % (Auto) 5.4 Eos % (Auto) 0.5 Baso % (Auto) 0.6 Neut # (Auto) 10.7 H Lymph # (Auto) 1.5 [place] # (Auto) 0.7 Eos # (Auto) 0.1 Baso # (Auto) 0.1 WBC Differential . Differential Comment Auto diff final Sodium 140 Potassium 3.7 Chloride 106 Carbon Dioxide 23.8 Anion Gap 10 BUN 22 H Creatinine 0.80 Estimated GFR Greater than 89 Random Glucose 109 H Calcium 9.1 Labs reviewed. No anemia. Mild leukocytosis without signs or symptoms of infection. Review of Systems unobtainable due to mental condition Mental Status Examination Appearance: Disheveled Consciousness: Alert Orientation: Person Motor Activity: Other (No hand tremor, no cogwheeling, no dystonias, no dyskinesias. In particular no oral/lingual dyskinesias. No other motor abnormalities noted.) Speech: Hesitant Language: Other (Rambling) Fund of Knowledge: Adequate Attention and Concentration: Easily distracted Memory: Impaired (Psychosis interferes) Mood: Other (Calm, somewhat oppositional) Affect: Blunt Thought Process & Associations: Loose associations, Tangential Thought Content: Bizarre thinking Hallucination Type: Other (Remains internally stimulated) Delusion Type: Paranoid Suicidal Ideation: No Suicidal Plan: No Suicidal Intention: No Homicidal Ideation: No Homicidal Plan: No Homicidal Intention: No Insight: Poor Judgment: Poor Assessment and Plan - Assessment (1) Schizophrenia Code(s): F20.9 - Schizophrenia, unspecified Status: Acute - Plan Plan: Continue Navane titration to target psychotic symptoms. Navane 4 mg 3 times a day. Continue Zyprexa at HS. Hospitalist input noted and appreciated. Continue to monitor on the inpatient unit. Continue other medications and care as ordered. Justification for Continued Inpatient Stay: Medication changes. Impairment in reality construction. High risk for decompensation in less restrictive environment. Discharge Planning: Pending psychiatric stabilization Request Healthcare Surrogate/Guardian Advocate?: Yes (1) Schizophrenia Qualifiers: Schizophrenia type: paranoid schizophrenia Qualified Code(s): F20.0 - Paranoid schizophrenia
--- NOTE | 2018-01-30 15:50 | P.PN ---
Subjective Interval history: Follow-up visit rectal bleed. Patient seen today. Does not want to be examined. States he is doing well. States that he has no bleeding in his rectum or anywhere in his body. Denies pain or discomfort Physical Exam Vital signs: Vital Signs 01/29/18 17:16 Temperature 97.9 F Pulse Rate 91 H Respiratory Rate 17 Blood Pressure 117/76 Pulse Oximetry 97 Narrative: GENERAL: This is a thin appearing male. Irritable. Agitated with questions. SKIN: Warm and dry. HEENT: Normocephalic. Nose without bleeding. Airway patent. MUSCULOSKELETAL: Extremities without clubbing, cyanosis, or edema. NEUROLOGICAL: Awake and alert. Moves all extremities. Normal speech. Results - Labs CBC & Chem 7: 01/30/18 09:38 01/30/18 09:38 Laboratory Results - last 24 hr 01/30/18 01/30/18 09:38 09:38 WBC 13.0 H RBC 5.18 Hgb 15.6 Hct 47.1 MCV 91.1 MCH 30.2 MCHC 33.1 RDW 14.1 Plt Count 272 MPV 9.8 Neut % (Auto) 82.2 H Lymph % (Auto) 11.3 [place] % (Auto) 5.4 Eos % (Auto) 0.5 Baso % (Auto) 0.6 Neut # (Auto) 10.7 H Lymph # (Auto) 1.5 [place] # (Auto) 0.7 Eos # (Auto) 0.1 Baso # (Auto) 0.1 WBC Differential . Differential Comment Auto diff final Sodium 140 Potassium 3.7 Chloride 106 Carbon Dioxide 23.8 Anion Gap 10 BUN 22 H Creatinine 0.80 Estimated GFR Greater than 89 Random Glucose 109 H Calcium 9.1 Assessment and Plan - Plan Patient is a 57-year-old male who denies any medical or surgical history who initially came into the hospital as a Simmons act initiated by police for aggressive behavior with staff and residents in his facility. Patient is admitted to inpatient psychiatry unit for further evaluation. Consulted for rectal bleed. Schizophrenia -Managed by psychiatry team -Very reclusive does not want to be exam Rectal Bleed -Unable to examine -H&H stable. -Stool for Hemoccult nurses unable to collect as patient does not want to be examined nor provide any -Anusol for possible hemorrhoid Leukocytosis, possibly reactive -Recheck if the patient allows blood draw DVT prop ambulatory Stable from Hospitalist standpoint. We will sign off. Reconsult as needed. Code Status: Full code Discussed Condition With: Patient, nurse Discharge Planning: DC disposition by primary team
[2018-01-30] MEDS: OLANZapine 10 MG Tablet PO SCH (20:02)
[2018-01-31] MEDS: Levothyroxine 100 MCG Tablet PO SCH (06:06)
--- NOTE | 2018-01-31 09:22 | P.PNPSY ---
Subjective Chief Complaint: Psychosis Remarks: Patient seen and examined with nurse. Chart reviewed. Case discussed with nursing staff. Case discussed with counselor who reports that he has confirmed that patient can go back to assisted living facility once stable. On my exam today, patient is less oppositional and more interactive. He remains fairly paranoid. He denies SI/HI. Denies AVH. He perseverates on [address] tomorrow, asking repeatedly "why do I have to go to court?" I endeavor to explain the [address] to him at a level appropriate to his impairment, but he replies by repeating his question, "why do I have to go to court?" Denies side effects from medications. No physical complaints, and in particular denies any further rectal bleeding. Vital Signs Temp Pulse Resp BP Pulse Ox 01/31/18 05:47 97.8 F 78 18 108/57 L 96 01/30/18 18:36 98.2 F 80 17 138/86 96 Labs reviewed. Fecal occult blood was positive. Review of Systems All other systems reviewed negative except as stated in HPI (Limitation: Psychosis) Mental Status Examination Appearance: Disheveled Consciousness: Alert Orientation: Person Motor Activity: Other (No motor abnormalities noted) Speech: Hesitant Language: Perseveration Fund of Knowledge: Adequate Attention and Concentration: Easily distracted Memory: Impaired (Psychosis interferes) Mood: Other (Calm) Affect: Blunt Thought Process & Associations: Tangential Thought Content: Bizarre thinking, Thought blocking, Preoccupations Hallucination Type: Other (Remains internally stimulated) Delusion Type: Paranoid Suicidal Ideation: No Suicidal Plan: No Suicidal Intention: No Homicidal Ideation: No Homicidal Plan: No Homicidal Intention: No Insight: Poor Judgment: Poor Assessment and Plan - Assessment (1) Schizophrenia Code(s): F20.9 - Schizophrenia, unspecified Status: Acute - Plan Plan: Check EKG to ensure QTc is not growing prolonged on higher antipsychotic dose. Continue Navane and Zyprexa as ordered with plans for titration of Navane tomorrow to target psychosis so long as EKG does not reveal significant abnormality. I have discussed FOB findings with midlevel from the hospitalist service, and we agree to check CBC Monday morning. If H&H has dropped, we will plan to consult GI. Continue hemorrhoid treatment as ordered. Continue to monitor on the inpatient unit. Continue other medications and care as ordered. Justification for Continued Inpatient Stay: Impairment in reality construction. Medication changes planned. Risk for decompensation in less restrictive environment. Discharge Planning: Pending psychiatric stabilization. Request Healthcare Surrogate/Guardian Advocate?: Yes (1) Schizophrenia Qualifiers: Schizophrenia type: paranoid schizophrenia Qualified Code(s): F20.0 - Paranoid schizophrenia
[2018-01-31] MEDS: Propranolol 10 MG Tablet PO SCH ×2 (09:47→20:18)
[2018-01-31] MEDS: Senna/Docusate Sodium 8.6/50 MG Tablet PO SCH ×2 (18:24→20:18)
[2018-01-31] MEDS: OLANZapine 10 MG Tablet PO SCH (20:18)
[2018-02-01] MEDS: Levothyroxine 100 MCG Tablet PO SCH (06:18)
--- NOTE | 2018-02-01 08:52 | P.PNPSY ---
Subjective Chief Complaint: Psychosis Remarks: Patient seen and examined with nurse. Chart reviewed. Case discussed with nursing staff. Patient remains disorganized and nursing relates episode where the patient knocked urgently on the med room door. When nurse responded, she found the patient fully clothed with shampoo in his hair. His speech was reportedly rambling and unintelligible. On my examination today, patient remains fairly disorganized. He is seclusive to room. He remains paranoid. He tells me "I don't wanna talk." Denies side effects from medications. No physical complaints. Vital Signs Temp Pulse Resp BP Pulse Ox 02/01/18 05:41 97.5 F L 68 17 94/55 L 97 01/31/18 17:02 98.3 F 97 H 18 115/69 97 Intake and Output 01/31/18 02/01/18 02/01/18 22:59 06:59 14:59 Other: Weight 59.2 kg Labs reviewed. No new labs. Review of Systems unobtainable due to mental condition Mental Status Examination Appearance: Disheveled Consciousness: Alert Orientation: Person Motor Activity: Other (No abnormal motor movements noted) Speech: Hesitant Language: Perseveration Fund of Knowledge: Adequate Attention and Concentration: Easily distracted Memory: Impaired (Psychosis interferes) Mood: Oppositional Affect: Blunt Thought Process & Associations: Disorganized Thought Content: Bizarre thinking, Thought blocking, Preoccupations Hallucination Type: Other (Internally preoccupied) Delusion Type: Paranoid Suicidal Ideation: No (No SI voiced) Homicidal Ideation: No (No HI voiced) Insight: Poor Judgment: Poor Assessment and Plan - Assessment (1) Schizophrenia Code(s): F20.9 - Schizophrenia, unspecified Status: Acute - Plan Plan: Awaiting significant response from Navane therapy. This agent does appear to be well tolerated and there is no evidence of QTc prolongation. I will titrate the Navane to 5 mg 3 times daily. Continue other psychotropic medications as ordered. Continue to monitor on the inpatient unit. Continue other care as ordered. Patient's case was presented to the [place]. The patient himself declined to appear and so the public housing interviewer has requested and received a one-week continuance to see if the patient will be willing to appear next week. Patient's brother was appointed as healthcare surrogate. Justification for Continued Inpatient Stay: Medication changes. Impairment in reality construction. Impairment in self- care. High risk for decompensation in less restrictive environment. Discharge Planning: Pending psychiatric stabilization. Patient may return to [facility] once stable per counselor. Request Healthcare Surrogate/Guardian Advocate?: Yes (1) Schizophrenia Qualifiers: Schizophrenia type: paranoid schizophrenia Qualified Code(s): F20.0 - Paranoid schizophrenia
[2018-02-01] MEDS: Senna/Docusate Sodium 8.6/50 MG Tablet PO SCH ×2 (10:29→20:30)
[2018-02-01] MEDS: Propranolol 10 MG Tablet PO SCH ×2 (10:29→20:31)
--- NOTE | 2018-02-01 13:22 | ECG ---
Date Performed: 01/31/2018 Time Performed: 13:49:16 PTAGE: 57 years EKG: Sinus rhythm NORMAL ECG PREVIOUS TRACING : 01/25/2018 13.37 Since the previous tracing, no significant change noted DOCTOR: Mike Voss Interpretating Date/Time 02/01/2018 13:20:35
[2018-02-01] MEDS: OLANZapine 10 MG Tablet PO SCH (20:30)
[2018-02-01] MEDS: LORazepam 1 MG Tablet PO PRN (22:55)
[2018-02-02] MEDS: Levothyroxine 100 MCG Tablet PO SCH (06:38)
[2018-02-02] MEDS: Propranolol 10 MG Tablet PO SCH ×2 (08:51→20:34)
--- NOTE | 2018-02-02 13:04 | P.PNPSY ---
Subjective Chief Complaint: Psychosis Remarks: Patient seen and examined with nurse. Chart reviewed. Case discussed with nursing staff who reports patient has been fairly seclusive to room. Case discussed with counselor who feels that the patient is perhaps improving with current medications. On my examination today, the patient is taking a late lunch. He is not interested in extended interview today. He does ask when he is going to return to his facility. No SI or HI voiced. Thought process remains somewhat tangential. No side effects from medications. No physical complaints. Vital Signs Temp Pulse Resp BP Pulse Ox 02/02/18 05:57 98.1 F 63 17 89/65 L 97 02/01/18 17:49 98.5 F 83 20 131/68 Labs reviewed. No new labs. Review of Systems unobtainable due to mental condition Mental Status Examination Appearance: Disheveled Consciousness: Alert Orientation: Person Motor Activity: Other (No motoric abnormalities noted) Speech: Hesitant Language: Perseveration Fund of Knowledge: Adequate Attention and Concentration: Easily distracted Memory: Impaired (Psychosis interferes) Mood: Oppositional Affect: Blunt Thought Process & Associations: Tangential Thought Content: Bizarre thinking, Thought blocking, Preoccupations Hallucination Type: Other (Remains internally preoccupied) Delusion Type: Paranoid Suicidal Ideation: No (No SI voiced) Homicidal Ideation: No (No HI voiced) Insight: Poor Judgment: Poor Assessment and Plan - Assessment (1) Schizophrenia Code(s): F20.9 - Schizophrenia, unspecified Status: Acute - Plan Plan: Blood pressure a little bit low this morning although patient is asymptomatic. I will continue Navane supplementing Zyprexa as ordered for now. Could consider further titration of Navane over the weekend. Follow-up CBC ordered for Monday. No further complaints of bleeding per rectum. Continue to monitor on the inpatient unit. Continue other medications and care as ordered. Justification for Continued Inpatient Stay: Impairment in reality construction. Medication changes planned. High risk for decompensation in less restrictive environment. Discharge Planning: Return to facility once psychiatrically stable Request Healthcare Surrogate/Guardian Advocate?: Yes (1) Schizophrenia Qualifiers: Schizophrenia type: paranoid schizophrenia Qualified Code(s): F20.0 - Paranoid schizophrenia
[2018-02-02] MEDS: Senna/Docusate Sodium 8.6/50 MG Tablet PO SCH ×2 (14:51→20:34)
[2018-02-02] MEDS: OLANZapine 10 MG Tablet PO SCH (20:35)
[2018-02-03] MEDS: LORazepam 1 MG Tablet PO PRN ×2 (01:05→20:40)
[2018-02-03] MEDS: Levothyroxine 100 MCG Tablet PO SCH (05:21)
[2018-02-03] MEDS: Senna/Docusate Sodium 8.6/50 MG Tablet PO SCH ×2 (09:42→21:31)
[2018-02-03] MEDS: Propranolol 10 MG Tablet PO SCH ×2 (09:42→20:40)
--- NOTE | 2018-02-03 16:12 | P.PNPSY ---
Subjective Chief Complaint: Psychosis Remarks: Patient was seen and case discussed with nursing. Initially patient refuses the interview saying he does not want to talk to psychiatrist. He remains perseverative on his handling and his reasons for arriving at the hospital. Insight is poor. Per nursing, behavior is quite bizarre throughout the day. He is internally stimulated. Compliant with medications. No outbursts Mental Status Examination Appearance: Disheveled Consciousness: Alert Orientation: Person Motor Activity: Other (No motoric abnormalities noted) Speech: Hesitant Language: Perseveration Fund of Knowledge: Adequate Attention and Concentration: Easily distracted Memory: Impaired (Psychosis interferes) Mood: Oppositional Affect: Blunt Thought Process & Associations: Tangential Thought Content: Bizarre thinking, Thought blocking, Racing thoughts, Preoccupations Hallucination Type: Other (Remains internally preoccupied) Delusion Type: Paranoid Suicidal Ideation: No (No SI voiced) Suicidal Plan: No Suicidal Intention: No Homicidal Ideation: No (No HI voiced) Homicidal Plan: No Homicidal Intention: No Insight: Poor Judgment: Poor Assessment and Plan - Assessment (1) Schizophrenia Code(s): F20.9 - Schizophrenia, unspecified Status: Acute - Plan Plan: Continue current treatment plan Justification for Continued Inpatient Stay: Patient would decompensate in a less restrictive setting Request Healthcare Surrogate/Guardian Advocate?: Yes (1) Schizophrenia Qualifiers: Schizophrenia type: paranoid schizophrenia Qualified Code(s): F20.0 - Paranoid schizophrenia
[2018-02-03] MEDS: OLANZapine 10 MG Tablet PO SCH (20:41)
[2018-02-04] MEDS: Levothyroxine 100 MCG Tablet PO SCH (06:32)
[2018-02-04] MEDS: Propranolol 10 MG Tablet PO SCH ×2 (09:16→20:53)
[2018-02-04] MEDS: Senna/Docusate Sodium 8.6/50 MG Tablet PO SCH ×2 (09:16→20:53)
--- NOTE | 2018-02-04 13:08 | P.PNPSY ---
Subjective Chief Complaint: Psychosis Remarks: Patient was seen and case discussed with nursing. Patient remains psychotic with various bizarre behaviors. He went to take a shower and got out with shampooing his hair and refused to let staff clean him up. He is paranoid that he will be given Thorazine. This paranoia resulted in him receiving Ativan this morning. Appears more internally stimulated today. Remains perseverative on discharge Mental Status Examination Appearance: Disheveled Consciousness: Alert Orientation: Person, Place Motor Activity: Other (No motoric abnormalities noted) Speech: Other (Auto Wendy) Language: Perseveration Fund of Knowledge: Adequate Attention and Concentration: Easily distracted Memory: Impaired (Psychosis interferes) Mood: Oppositional Affect: Blunt Thought Process & Associations: Tangential Thought Content: Bizarre thinking, Thought blocking, Racing thoughts, Preoccupations Hallucination Type: Other (Remains internally preoccupied) Delusion Type: Paranoid Suicidal Ideation: No (No SI voiced) Suicidal Plan: No Suicidal Intention: No Homicidal Ideation: No (No HI voiced) Homicidal Plan: No Homicidal Intention: No Insight: Poor Judgment: Poor Assessment and Plan - Assessment (1) Schizophrenia Code(s): F20.9 - Schizophrenia, unspecified Status: Acute - Plan Plan: Continue current treatment plan Justification for Continued Inpatient Stay: Patient would decompensate in a less restrictive setting Request Healthcare Surrogate/Guardian Advocate?: Yes (1) Schizophrenia Qualifiers: Schizophrenia type: paranoid schizophrenia Qualified Code(s): F20.0 - Paranoid schizophrenia
[2018-02-04] MEDS: Acetaminophen 325 MG Tablet PO PRN (14:46)
[2018-02-04] MEDS: OLANZapine 10 MG Tablet PO SCH (20:54)
[2018-02-05] MEDS: Levothyroxine 100 MCG Tablet PO SCH (06:03)
[2018-02-05] MEDS: Senna/Docusate Sodium 8.6/50 MG Tablet PO SCH ×2 (08:49→21:04)
[2018-02-05] MEDS: Propranolol 10 MG Tablet PO SCH ×2 (08:49→21:04)
--- NOTE | 2018-02-05 11:18 | P.PNPSY ---
Subjective Chief Complaint: Psychosis Remarks: Patient seen and examined with counselor. Chart reviewed. Case discussed with nursing staff. No behavioral issues noted. Patient is medication compliant and eating well. On my examination today, the patient is seclusive to room. He is somewhat negativistic but calm. He denies any SI or HI. Denies any AVH. Denies any side effects from medications. No physical complaints. Refuses physical exam for motor abnormalities from antipsychotics. Vital Signs Temp Pulse Resp BP Pulse Ox 02/05/18 06:29 78 110/64 97 02/04/18 17:04 98.6 F 90 18 100 Intake and Output 02/04/18 02/05/18 02/05/18 22:59 06:59 14:59 Other: Weight 61.8 kg Labs reviewed. No new labs. Review of Systems All other systems reviewed negative except as stated in HPI (Limitation: Negativism) Mental Status Examination Appearance: Other (Fair grooming) Consciousness: Alert Orientation: Person, Place Motor Activity: Other (No abnormal motor movements noted) Speech: Other (Auto Wendy) Language: Perseveration Fund of Knowledge: Adequate Attention and Concentration: Easily distracted Memory: Impaired (Psychosis interferes) Mood: Oppositional Affect: Blunt Thought Process & Associations: Intact Thought Content: Thought blocking Hallucination Type: None Delusion Type: None Suicidal Ideation: No Suicidal Plan: No Suicidal Intention: No Homicidal Ideation: No Homicidal Plan: No Homicidal Intention: No Insight: Poor Judgment: Poor Assessment and Plan - Assessment (1) Schizophrenia Code(s): F20.9 - Schizophrenia, unspecified Status: Acute - Plan Plan: Continue current psychotropic medications as ordered. Unclear how far off his chronic baseline patient presently is. Counselor will have ict sales representative from facility come to evaluate the patient to help us determine whether or not the patient is indeed at baseline. Continue to monitor on the inpatient unit in the meantime. Continue other care as ordered. Justification for Continued Inpatient Stay: Risk for decompensation in less restrictive environment. Discharge Planning: Return to facility with outpatient follow-up when stable. Request Healthcare Surrogate/Guardian Advocate?: Yes (1) Schizophrenia Qualifiers: Schizophrenia type: paranoid schizophrenia Qualified Code(s): F20.0 - Paranoid schizophrenia
[2018-02-05] MEDS: OLANZapine 10 MG Tablet PO SCH (21:04)
[2018-02-06] MEDS: Levothyroxine 100 MCG Tablet PO SCH (05:41)
[2018-02-06 07:54] LABS: Baso # (Auto) 0.1 th/mm3 (0.0-0.2); Baso % (Auto) 1.3 % (0.0-2.0); Eos # (Auto) 0.3 th/mm3 (0.0-0.4); Eos % (Auto) 3.4 % (0.0-4.0); Hematocrit 38.3 % (39.0-51.0); Hemoglobin 12.6 gm/dL (13.0-17.0); Lymph # (Auto) 1.8 th/mm3 (1.0-4.8); Mean Corpuscular Volume 90.9 fL (80.0-100.0); Mean Platelet Volume 9.4 fL (7.0-11.0); Mono # (Auto) 0.5 th/mm3 (0.0-0.9); Mono % (Auto) 5.9 % (0.0-8.0); Neut # (Auto) 6.3 th/mm3 (1.8-7.7); Neut % (Auto) 69.4 % (16.0-70.0); Platelet Count 215 th/mm3 (150-450); Red Blood Count 4.21 mil/mm3 (4.50-5.90); Red Cell Distribution Width 13.7 % (11.6-17.2); White Blood Count 9.1 th/mm3 (4.0-11.0)
[2018-02-06] MEDS: Propranolol 10 MG Tablet PO SCH ×2 (08:40→20:46)
[2018-02-06] MEDS: Senna/Docusate Sodium 8.6/50 MG Tablet PO SCH ×2 (08:40→20:46)
--- NOTE | 2018-02-06 10:18 | P.PNPSY ---
Subjective Chief Complaint: Psychosis Remarks: Patient seen and examined with counselor. Chart reviewed. Case discussed with nursing staff who reports patient has been somewhat more irritable but no real behavioral problem. Case discussed in treatment team. On my examination today , the patient presents as calm and seclusive to room. He is somewhat oppositional and negativistic. No SI or HI. No side effects from medications. No physical complaints. Spoke with patient's brother/healthcare surrogate. We discussed patient's progress on the unit and treatment plan going forward. He is supportive of trial of return to [facility] once stable, and we discussed possible timeframe for this. After my conversation with patient's brother, counselor relates that Corinne from [facility] has been over to visit with the patient and feels that the patient could benefit from additional inpatient stabilization prior to return there. She will return on Monday to reevaluate the patient per counselor. Vital Signs Temp Pulse Resp BP Pulse Ox 02/06/18 06:03 98 F 70 17 108/51 L 94 L Laboratory Results - last 24 hr 02/06/18 06:15 WBC 9.1 RBC 4.21 L Hgb 12.6 L Hct 38.3 L MCV 90.9 MCH 30.0 MCHC 33.0 RDW 13.7 Plt Count 215 MPV 9.4 Neut % (Auto) 69.4 Lymph % (Auto) 20.0 [place] % (Auto) 5.9 Eos % (Auto) 3.4 Baso % (Auto) 1.3 Neut # (Auto) 6.3 Lymph # (Auto) 1.8 [place] # (Auto) 0.5 Eos # (Auto) 0.3 Baso # (Auto) 0.1 WBC Differential . Differential Comment Auto diff final Labs reviewed. Mild normocytic anemia noted. Review of Systems All other systems reviewed negative except as stated in HPI (Limitation: Poor historian) Mental Status Examination Appearance: Other (Fair grooming) Consciousness: Alert Orientation: Person, Place Motor Activity: Other (No motor abnormalities noted) Speech: Hesitant Language: Perseveration Fund of Knowledge: Adequate Attention and Concentration: Easily distracted Memory: Impaired (Psychosis interferes) Mood: Oppositional Affect: Blunt Thought Process & Associations: Intact Thought Content: Thought blocking (Perhaps decreasing) Hallucination Type: None Delusion Type: None Suicidal Ideation: No Homicidal Ideation: No Insight: Poor Judgment: Poor Assessment and Plan - Assessment (1) Schizophrenia Code(s): F20.9 - Schizophrenia, unspecified Status: Acute - Plan Plan: Titrate Navane to 6 mg 3 times daily to target residual psychotic symptoms. Continue Zyprexa as ordered. I discussed CBC findings with the hospitalist mid- level provider vis--vis the concern for possible rectal bleeding. Hospitalist mid-level provider recommends rechecking CBC on and if anemia becomes more pronounced (i.e. in the 10s or less) to pursue GI consultation at that time. I have ordered CBC for morning. Continue to monitor on the inpatient unit. Continue other medications and care as ordered. Justification for Continued Inpatient Stay: Medication changes. Risk for decompensation in less restrictive environment. Discharge Planning: Return to [facility] with outpatient follow-up following psychiatric stabilization. Request Healthcare Surrogate/Guardian Advocate?: Yes (1) Schizophrenia Qualifiers: Schizophrenia type: paranoid schizophrenia Qualified Code(s): F20.0 - Paranoid schizophrenia
--- NOTE | 2018-02-06 10:25 | P.TTN ---
- Patient Problems Problems: 1. Discharge planning 2. Medication compliance 3. Knowledge deficit 4. Lack of coping skills - Progress Toward Goals Provider Present: Dr. Art William Psychiatric Counselors Present: Shiva Phan Jr., [facility] Psychiatric Therapist Input: Patient presents as childlike, uncooperative, and either unable or unwilling to respond appropriately. Patient presents as oppositional and stated today that he will not speak with Corinne from [facility] who is scheduled to come and assess patient today. When asked to elaborate, patient was either unable or unwilling. It is not clear if patient is approaching his baseline, Corinne will come today to provide insight. Patient attends select groups, the doctor is no longer titrating medications. Group Spec/RT/OT/PEARCE Present: RAMSES Lua - Documentation Teaching Recipient: Patient
[2018-02-06] MEDS: Acetaminophen 325 MG Tablet PO PRN (17:30)
[2018-02-06] MEDS: OLANZapine 10 MG Tablet PO SCH (20:45)
[2018-02-07] MEDS: Levothyroxine 100 MCG Tablet PO SCH (05:45)
[2018-02-07] MEDS: Senna/Docusate Sodium 8.6/50 MG Tablet PO SCH ×2 (08:45→20:48)
[2018-02-07] MEDS: Propranolol 10 MG Tablet PO SCH ×2 (08:46→20:48)
--- NOTE | 2018-02-07 13:02 | P.PNPSY ---
Subjective Chief Complaint: Psychosis Remarks: The patient was seen today for psychiatric reevaluation. I have discussed this case with nursing staff and also with counselor. The patient was seen in the recreational area of [id number]. The patient is calm, superficially cooperative, a little bit guarded. The patient reports feeling much better, requesting to be discharge back to his shelter, no happy with the idea that he has to go back to court tomorrow, he says that he does not want to go. He denies suicidal and homicidal ideation, he denies visual and auditory hallucinations. Compliant with medications, no significant side effects reported. No behavioral problems , no aggressive behavior or agitation reported. Mental Status Examination Appearance: Other (Fair grooming) Consciousness: Alert Orientation: Person, Place Motor Activity: Other (No motor abnormalities noted) Speech: Hesitant Language: Perseveration Fund of Knowledge: Adequate Attention and Concentration: Easily distracted Memory: Impaired (Psychosis interferes) Mood: Oppositional Affect: Blunt Thought Process & Associations: Intact Thought Content: Thought blocking (Perhaps decreasing) Hallucination Type: None Delusion Type: None Suicidal Ideation: No Suicidal Plan: No Suicidal Intention: No Homicidal Ideation: No Homicidal Plan: No Homicidal Intention: No Insight: Poor Judgment: Poor Assessment and Plan - Assessment (1) Schizophrenia Code(s): F20.9 - Schizophrenia, unspecified Status: Acute - Plan Plan: Patient seems to be at baseline, some residual symptoms of schizophrenia that does not seem to be dangerous. Compliant medications, no significant side effects, continue current psychotropic regimen Justification for Continued Inpatient Stay: She has an elevated risk of decompensating at a lower level of care Request Healthcare Surrogate/Guardian Advocate?: Yes (1) Schizophrenia Qualifiers: Schizophrenia type: paranoid schizophrenia Qualified Code(s): F20.0 - Paranoid schizophrenia
[2018-02-07] MEDS: OLANZapine 10 MG Tablet PO SCH (20:48)
[2018-02-08] MEDS: Senna/Docusate Sodium 8.6/50 MG Tablet PO SCH ×2 (09:00→20:26)
[2018-02-08] MEDS: Propranolol 10 MG Tablet PO SCH ×2 (09:00→20:26)
--- NOTE | 2018-02-08 13:45 | P.PNPSY ---
Subjective Chief Complaint: Psychosis Remarks: The patient was seen today for psychiatric reevaluation. The patient continues to be kind of isolated, guarded, but he reports feeling better. The patient today declined to show up in [address] stating that he does not like to be court. Patient denies suicidal enemas ideation, he denies visual and auditory hallucinations. The patient has not been a behavioral problem in the unit, he has been taking his medications, no significant side effects. Mental Status Examination Appearance: Other (Fair grooming) Consciousness: Alert Orientation: Person, Place Motor Activity: Other (No motor abnormalities noted) Speech: Hesitant Language: Perseveration Fund of Knowledge: Adequate Attention and Concentration: Easily distracted Memory: Impaired (Psychosis interferes) Mood: Oppositional Affect: Blunt Thought Process & Associations: Intact Thought Content: Thought blocking (Perhaps decreasing) Hallucination Type: None Delusion Type: None Suicidal Ideation: No Suicidal Plan: No Suicidal Intention: No Homicidal Ideation: No Homicidal Plan: No Homicidal Intention: No Insight: Poor Judgment: Poor Assessment and Plan - Assessment (1) Schizophrenia Code(s): F20.9 - Schizophrenia, unspecified Status: Acute - Plan Plan: Continue current psychotropic regimen. Justification for Continued Inpatient Stay: She has an elevated risk to decompensate at a lower level of care. Request Healthcare Surrogate/Guardian Advocate?: Yes (1) Schizophrenia Qualifiers: Schizophrenia type: paranoid schizophrenia Qualified Code(s): F20.0 - Paranoid schizophrenia
[2018-02-08] MEDS: OLANZapine 10 MG Tablet PO SCH (20:27)
[2018-02-09] MEDS: Levothyroxine 100 MCG Tablet PO SCH (06:00)
[2018-02-09] MEDS: Senna/Docusate Sodium 8.6/50 MG Tablet PO SCH ×2 (08:27→21:46)
[2018-02-09] MEDS: Propranolol 10 MG Tablet PO SCH ×2 (08:27→21:46)
--- NOTE | 2018-02-09 12:15 | P.PNPSY ---
Subjective Chief Complaint: Psychosis Remarks: The patient was seen today for psychiatric reevaluation. Case was discussed with nursing staff. The patient was found in the eubanks of the unit, superficially cooperative, endorses good mood, reports feeling okay, he seems to be quite distant, but appropriate. He denies suicidal and homicidal ideation , he denies visual and auditory hallucinations. Compliant his medications, no significant side effects. Oriented 3. No agitation, no aggressive behavior, no behavioral dysregulation reported Mental Status Examination Appearance: Other (Fair grooming) Consciousness: Alert Orientation: Person, Place Motor Activity: Other (No motor abnormalities noted) Speech: Hesitant Language: Perseveration Fund of Knowledge: Adequate Attention and Concentration: Easily distracted Memory: Impaired (Psychosis interferes) Mood: Oppositional Affect: Blunt Thought Process & Associations: Intact Thought Content: Thought blocking (Perhaps decreasing) Hallucination Type: None Delusion Type: None Suicidal Ideation: No Suicidal Plan: No Suicidal Intention: No Homicidal Ideation: No Homicidal Plan: No Homicidal Intention: No Insight: Poor Judgment: Poor Assessment and Plan - Assessment (1) Schizophrenia Code(s): F20.9 - Schizophrenia, unspecified Status: Acute - Plan Plan: Continue psychiatric admission for stabilization and safety. Justification for Continued Inpatient Stay: Patient continues to improve, showing good response to psychotropic regimen. Brief supportive psychotherapy provided. Request Healthcare Surrogate/Guardian Advocate?: Yes (1) Schizophrenia Qualifiers: Schizophrenia type: paranoid schizophrenia Qualified Code(s): F20.0 - Paranoid schizophrenia
[2018-02-09] MEDS: Aluminum/Magnesium/Simethacone Susp 30 ML UDC PO PRN (17:25)
[2018-02-09] MEDS: OLANZapine 10 MG Tablet PO SCH (21:46)
[2018-02-10] MEDS: Levothyroxine 100 MCG Tablet PO SCH (06:26)
[2018-02-10] MEDS: Senna/Docusate Sodium 8.6/50 MG Tablet PO SCH ×2 (10:07→21:36)
[2018-02-10] MEDS: Propranolol 10 MG Tablet PO SCH ×2 (10:07→21:36)
[2018-02-10] MEDS: Acetaminophen 325 MG Tablet PO PRN ×2 (13:47→19:03)
--- NOTE | 2018-02-10 15:05 | P.PNPSY ---
Subjective Chief Complaint: Psychosis Remarks: Patient was seen and case discussed with nursing. Patient remains psychotic and internally stimulated. He had does appear improved compared to my visit with him last week. He is compliant with his medications and is less intrusive. Mental Status Examination Appearance: Other (Fair grooming) Consciousness: Alert Orientation: Person, Place Motor Activity: Other (No motor abnormalities noted) Speech: Hesitant Language: Perseveration Fund of Knowledge: Adequate Attention and Concentration: Easily distracted Memory: Impaired (Psychosis interferes) Mood: Oppositional Affect: Blunt Thought Process & Associations: Intact Thought Content: Thought blocking (Perhaps decreasing) Hallucination Type: None Delusion Type: None Suicidal Ideation: No Suicidal Plan: No Suicidal Intention: No Homicidal Ideation: No Homicidal Plan: No Homicidal Intention: No Insight: Poor Judgment: Poor Assessment and Plan - Assessment (1) Schizophrenia Code(s): F20.9 - Schizophrenia, unspecified Status: Acute - Plan Plan: Continue current treatment plan Justification for Continued Inpatient Stay: Patient would decompensate in a less restrictive setting Request Healthcare Surrogate/Guardian Advocate?: Yes (1) Schizophrenia Qualifiers: Schizophrenia type: paranoid schizophrenia Qualified Code(s): F20.0 - Paranoid schizophrenia
[2018-02-10] MEDS: OLANZapine 10 MG Tablet PO SCH (21:35)
[2018-02-11] MEDS: Levothyroxine 100 MCG Tablet PO SCH (06:02)
[2018-02-11] MEDS: Senna/Docusate Sodium 8.6/50 MG Tablet PO SCH ×2 (09:37→20:03)
[2018-02-11] MEDS: Propranolol 10 MG Tablet PO SCH ×2 (09:38→20:03)
--- NOTE | 2018-02-11 11:27 | P.PNPSY ---
Subjective Chief Complaint: Psychosis Remarks: Patient was seen and case discussed with nursing. Patient remains bizarre and disorganized. He is wearing his pants inside out and is quite disheveled. Continues to fight with staff after showering. He shampoos his hair and then will not wash it off. Today he is minimally engaged during the interview and internally preoccupied during the day Mental Status Examination Appearance: Other (Fair grooming) Consciousness: Alert Orientation: Person, Place Motor Activity: Other (No motor abnormalities noted) Speech: Hesitant Language: Perseveration Fund of Knowledge: Adequate Attention and Concentration: Easily distracted Memory: Impaired (Psychosis interferes) Mood: Oppositional Affect: Blunt Thought Process & Associations: Intact Thought Content: Thought blocking (Perhaps decreasing) Hallucination Type: None Delusion Type: None Suicidal Ideation: No Suicidal Plan: No Suicidal Intention: No Homicidal Ideation: No Homicidal Plan: No Homicidal Intention: No Insight: Poor Judgment: Poor Assessment and Plan - Assessment (1) Schizophrenia Code(s): F20.9 - Schizophrenia, unspecified Status: Acute - Plan Plan: Continue current treatment plan Justification for Continued Inpatient Stay: Patient would decompensate in a less restrictive setting Request Healthcare Surrogate/Guardian Advocate?: Yes (1) Schizophrenia Qualifiers: Schizophrenia type: paranoid schizophrenia Qualified Code(s): F20.0 - Paranoid schizophrenia
[2018-02-11] MEDS: Acetaminophen 325 MG Tablet PO PRN (18:25)
[2018-02-11] MEDS: LORazepam 1 MG Tablet PO PRN (20:03)
[2018-02-11] MEDS: OLANZapine 10 MG Tablet PO SCH (20:03)
[2018-02-11] MEDS: Aluminum/Magnesium/Simethacone Susp 30 ML UDC PO PRN (20:18)
[2018-02-12] MEDS: Levothyroxine 100 MCG Tablet PO SCH (06:13)
[2018-02-12] MEDS: Propranolol 10 MG Tablet PO SCH ×2 (10:02→20:16)
[2018-02-12] MEDS: Senna/Docusate Sodium 8.6/50 MG Tablet PO SCH ×2 (10:02→20:15)
--- NOTE | 2018-02-12 13:17 | P.PNPSY ---
Subjective Chief Complaint: Psychosis Remarks: The patient was seen today for psychiatric reevaluation, the case was discussed with nursing charge, documentation from the weekend was reviewed. Patient remains bizarre and disorganized. He was initially seen naked going from his room to the bathroom, but he was redirectable. Is quite bizarre and disorganized. Continues to fight with staff after showering. He shampoos his hair and then will not wash it off. Today he is minimally engaged during the interview and internally preoccupied during the day. During the weekend is reported that the patient defecated in the middle of the unit. Mental Status Examination Appearance: Other (Fair grooming) Consciousness: Alert Orientation: Person, Place Motor Activity: Other (No motor abnormalities noted) Speech: Hesitant Language: Perseveration Fund of Knowledge: Adequate Attention and Concentration: Easily distracted Memory: Impaired (Psychosis interferes) Mood: Oppositional Affect: Blunt Thought Process & Associations: Intact Thought Content: Thought blocking (Perhaps decreasing) Hallucination Type: None Delusion Type: None Suicidal Ideation: No Suicidal Plan: No Suicidal Intention: No Homicidal Ideation: No Homicidal Plan: No Homicidal Intention: No Insight: Poor Judgment: Poor Assessment and Plan - Assessment (1) Schizophrenia Code(s): F20.9 - Schizophrenia, unspecified Status: Acute - Plan Plan: Patient continues to be chronically psychotic. Justification for Continued Inpatient Stay: Patient has an elevated risk to decompensate at a lower level of care. Request Healthcare Surrogate/Guardian Advocate?: Yes (1) Schizophrenia Qualifiers: Schizophrenia type: paranoid schizophrenia Qualified Code(s): F20.0 - Paranoid schizophrenia
[2018-02-12] MEDS: OLANZapine 10 MG Tablet PO SCH (20:15)
[2018-02-13] MEDS: LORazepam 1 MG Tablet PO PRN ×2 (00:34→23:24)
[2018-02-13] MEDS: Levothyroxine 100 MCG Tablet PO SCH (05:22)
[2018-02-13] MEDS: Senna/Docusate Sodium 8.6/50 MG Tablet PO SCH ×2 (08:42→21:02)
[2018-02-13] MEDS: Propranolol 10 MG Tablet PO SCH ×2 (08:48→21:02)
--- NOTE | 2018-02-13 09:58 | P.PNPSY ---
Subjective Chief Complaint: Psychosis Remarks: Patient seen and examined with counselor and nurse. Chart reviewed. Case discussed with nursing staff. Patient noted to have defecated in the day area over the weekend but otherwise has presented no behavioral problem. Nurse does note that patient does not wash the shampoo out of his hair when he showers, and nurse is requesting an order to assist patient with hygiene tasks, which I have entered. On my exam, patient remains fairly seclusive to room. When I ask about the incident over the weekend, patient replies "I dunno" as to the cause of his defecation. He denies any bowel issues now. He complains of feeling tired, saying that he slept poorly, but when I try to inquire after the cause of this poor sleep, he again replies only "I dunno." He denies SI or HI. Denies hallucinations. No reported side effects from medications. No physical complaints. Agreeable to meeting with mortician supplies sales representative from facility, and counselor has reached out to facility to arrange meeting to see how far off baseline patient presently is. Vital Signs Temp Pulse Resp BP Pulse Ox 02/13/18 08:00 74 17 102/63 02/12/18 17:23 97.8 F 85 18 115/74 97 Labs reviewed. No new labs. Review of Systems All other systems reviewed negative except as stated in HPI (Limitation: Poor historian.) Mental Status Examination Appearance: Other (Fair) Consciousness: Alert Orientation: Person, Place Motor Activity: Other (No abnormal motor movements noted) Speech: Hesitant Language: Perseveration Fund of Knowledge: Adequate Attention and Concentration: Easily distracted Memory: Unremarkable Mood: Oppositional Affect: Blunt Thought Process & Associations: Intact Thought Content: Appropriate Hallucination Type: None Delusion Type: None Suicidal Ideation: No Suicidal Plan: No Suicidal Intention: No Homicidal Ideation: No Homicidal Plan: No Homicidal Intention: No Insight: Poor Judgment: Poor Assessment and Plan - Assessment (1) Schizophrenia Code(s): F20.9 - Schizophrenia, unspecified Status: Acute - Plan Plan: Continue Navane and Zyprexa as ordered. Continue to monitor on the inpatient unit. Continue other medications and care as ordered. Justification for Continued Inpatient Stay: Risk for decompensation in less restrictive environment. Discharge Planning: It is possible that the patient is approaching his chronic baseline. [employer] from facility to come out to evaluate patient for possible return there soon versus ongoing inpatient hospitalization and medication adjustment. Request Healthcare Surrogate/Guardian Advocate?: Yes (1) Schizophrenia Qualifiers: Schizophrenia type: paranoid schizophrenia Qualified Code(s): F20.0 - Paranoid schizophrenia
[2018-02-13] MEDS: OLANZapine 10 MG Tablet PO SCH (21:02)
[2018-02-14] MEDS: Levothyroxine 100 MCG Tablet PO SCH (05:29)
[2018-02-14] MEDS: Propranolol 10 MG Tablet PO SCH ×2 (08:37→20:42)
[2018-02-14] MEDS: Senna/Docusate Sodium 8.6/50 MG Tablet PO SCH ×2 (08:37→20:42)
--- NOTE | 2018-02-14 14:34 | P.PNPSY ---
Subjective Chief Complaint: Psychosis Remarks: Patient seen and examined with counselor and nurse. Chart reviewed. Case discussed with nursing staff. Nursing reports that staff have assisted patient with washing shampoo out of his hair, but he then simply applied more. No significant behavioral issues otherwise. Case discussed with counselor who reports that patient is welcome to return to his facility tomorrow, . Case discussed with [employer], who has observed patient longitudinally on the unit and has noted improvement inpatient psychiatric illness during this admission. On my examination today, the patient is more interactive. He is excited about the prospect of returning to his facility and asks about belongings that he had there prior to coming into the hospital including a set of satin sheets. He denies any SI or HI. Denies any AVH. I ask him specifically about the shampoo, thinking that he may be using it in the setting of paranoia (e.g. to keep out radio waves or some other force), but the patient denies this. He can provide no real explanation for this behavior. No side effects from medications. No physical complaints. Vital Signs Temp Pulse Resp BP Pulse Ox 02/14/18 14:30 98.5 F 78 18 102/57 L 99 02/14/18 05:46 97.9 F 72 16 104/64 95 02/13/18 20:00 16 02/13/18 17:41 97.7 F 87 18 100/55 L 95 Labs reviewed. No new labs. Review of Systems All other systems reviewed negative except as stated in HPI (Limitation: Poor historian) Mental Status Examination Appearance: Other (Fair) Consciousness: Alert Orientation: Person, Place Motor Activity: Other (No motor abnormalities noted) Speech: Hesitant Language: Perseveration Fund of Knowledge: Adequate Attention and Concentration: Other (Fair) Memory: Unremarkable Mood: Appropriate Affect: Blunt Thought Process & Associations: Intact Thought Content: Appropriate Hallucination Type: None Delusion Type: None Suicidal Ideation: No Suicidal Plan: No Suicidal Intention: No Homicidal Ideation: No Homicidal Plan: No Homicidal Intention: No Insight: Poor Judgment: Poor Assessment and Plan - Assessment (1) Schizophrenia Code(s): F20.9 - Schizophrenia, unspecified Status: Acute - Plan Plan: Patient does seem to be improving with current regimen, likely approaching chronic baseline. Continue Navane and Zyprexa as ordered. Continue to monitor on the inpatient unit. Continue other medications and care as ordered. Justification for Continued Inpatient Stay: Final discharge planning Discharge Planning: Probable discharge back to facility tomorrow, . Request Healthcare Surrogate/Guardian Advocate?: Yes (1) Schizophrenia Qualifiers: Schizophrenia type: paranoid schizophrenia Qualified Code(s): F20.0 - Paranoid schizophrenia
[2018-02-14] MEDS: Acetaminophen 325 MG Tablet PO PRN (15:15)
[2018-02-14] MEDS: Aluminum/Magnesium/Simethacone Susp 30 ML UDC PO PRN (15:58)
[2018-02-14 16:01] VITALS: O2SAT 98
[2018-02-14] MEDS: LORazepam 1 MG Tablet PO PRN ×2 (17:48→23:44)
[2018-02-14 19:43] LABS: Creatine Kinase 69 U/L (39-308)
[2018-02-14] MEDS: OLANZapine 10 MG Tablet PO SCH (20:42)
[2018-02-15] MEDS: Aluminum/Magnesium/Simethacone Susp 30 ML UDC PO PRN (03:13)
[2018-02-15] MEDS: Levothyroxine 100 MCG Tablet PO SCH (05:07)
[2018-02-15 06:08] VITALS: BP 135/62; PULSE 92; RESP 16; TEMP 97.2
[2018-02-15] MEDS: Senna/Docusate Sodium 8.6/50 MG Tablet PO SCH (08:29)
[2018-02-15] MEDS: Propranolol 10 MG Tablet PO SCH (08:29)
[2018-02-15 10:59] LABS: Baso # (Auto) 0.1 th/mm3 (0.0-0.2); Baso % (Auto) 1.2 % (0.0-2.0); Eos # (Auto) 0.3 th/mm3 (0.0-0.4); Eos % (Auto) 4.4 % (0.0-4.0); Hematocrit 40.2 % (39.0-51.0); Hemoglobin 13.2 gm/dL (13.0-17.0); Lymph # (Auto) 1.6 th/mm3 (1.0-4.8); Mean Corpuscular HGB Conc 32.9 % (32.0-36.0); Mean Corpuscular Hemoglobin 30.1 pg (27.0-34.0); Mean Corpuscular Volume 91.5 fL (80.0-100.0); Mean Platelet Volume 9.3 fL (7.0-11.0); Mono # (Auto) 0.4 th/mm3 (0.0-0.9); Mono % (Auto) 5.8 % (0.0-8.0); Neut # (Auto) 5.2 th/mm3 (1.8-7.7); Neut % (Auto) 67.6 % (16.0-70.0); Platelet Count 207 th/mm3 (150-450); Red Blood Count 4.39 mil/mm3 (4.50-5.90); Red Cell Distribution Width 14.1 % (11.6-17.2); White Blood Count 7.7 th/mm3 (4.0-11.0)
--- NOTE | 2018-02-15 11:15 | P.DSPSY ---
Psychiatry Discharge Summary Inpatient Psychiatric care?: Yes Advance Directives: No Mental Health Advance Directive: No Health Care Proxy: No - Admission Admission Date: January 24, 2018 18:07 - Admission Diagnosis (1) Schizophrenia Code(s): F20.9 - Schizophrenia, unspecified Brief History: Mr. Dunlap is a 57-year-old male with a history of schizophrenia who presents under a [place] act by law enforcement alleging that the patient was "openly defiant to staff" at his assisted living facility and that "his actions were disrupting the facility and other residents." Patient was evaluated by the psychiatric nurse practitioner in the emergency department. Reviewing the EMR, I note that the patient was admitted most recently here under my care in 2014, after which the patient was sent to the [facility]. Patient seen and examined. Chart reviewed. Case discussed with nursing staff. Case discussed with counselor who has reached out the patient's facility. Per counselor, patient was allegedly making threats of harm to self and other residents prior to being [place] acted, although it is unclear what the antecedents of this alleged behavior were. On my examination today, the patient presents as hypoverbal and disheveled. Mood is "fine, yes." He denies any hopelessness, worthlessness or guilt. He denies any racing thoughts or other manic symptoms. He denies any audiovisual hallucinations but appears internally preoccupied. He denies any suicidal or homicidal ideation, intent or plan although it is unclear whether the patient is reliable to contract for safety. No noble delusional material. Patient is not interested in extended interview and asks to be left alone so that he can get some sleep. No acute physical complaints. Past psychiatric history: The patient has a history of schizophrenia with inpatient and states psychiatric hospitalization as noted above. The patient denies any recent psychiatric admissions or suicide attempts, although he is likely an unreliable historian. He is unable to tell me who his outpatient psychiatrist is. Family history: Patient is unsure of his family psychiatric history. Chemical dependency history: Patient denies any abuse of drugs or alcohol. Social history: Patient is a resident of [facility]. Limited social history from patient as he answers frequently "I am not sure." Spoke with patient's brother Dr. Ranjeet Dunlap and [id number] Suly at the numbers listed in the EMR. Dr. Dunlap reports that he last saw the patient a couple of weeks ago shortly after he had been discharged from the [facility] to [facility]. He found the patient to be paranoid and delusional believing that people were looking at him through the window. He was dismissive of family members. He was frankly responding to internal stimuli. Dr. Dunlap likens his state during that encounter as to when he was completely unmedicated. He is supportive of inpatient psychiatric hospitalization at this time for stabilization. We discussed the patient's legal status and plan for [place] next . He provides consent for treatment plan as outlined below. I spent approximately 15 minutes in telephone consultation with Dr. Dunlap. Tobacco Use In Past 30 Days: No How Often Do You Have a Drink Containing Alcohol: Never Hospital Course: Patient was admitted to a locked, inpatient psychiatric unit. A general medical consultation was obtained. Appropriate precautions were in place throughout patient's hospital stay. Patient was seen and examined on the unit by psychiatry and also visited by counselor. There was no evidence of any suicidality or homicidality on the inpatient unit. Collateral information was obtained from the patient's brother and also from billing representative from patient's facility. On the day of discharge: Patient seen and examined with nurse. Chart reviewed. Nutrition data reviewed. Patient has been eating well. Case discussed with nursing staff who reports that the patient slept somewhat poorly overnight secondary to being excited about returning to facility today but otherwise presented no behavioral problem. I do note that the on-call psychiatrist ordered a stat EKG (read as sinus rhythm with normal QTc) and cardiac enzymes (negative) yesterday evening. I spoke with the nurse who was caring for the patient yesterday evening, and apparently he was complaining of some chest pain, but this was felt to be behavioral and in service of obtaining a beverage of which he was particularly fond. Case discussed with counselor who reports that facility is agreeable to accepting patient back today. On my examination today, the patient is calm and cooperative with exam. He is agreeable to returning to facility today. He denies any suicidal or homicidal ideation, intent or plan. I can elicit no depressive or hypomanic/manic symptoms. He denies any audiovisual hallucinations. I can elicit no delusional material. He does have a significant negative symptom burden. He denies side effects from medications. No physical complaints, and in particular no complaints of chest pain or associated symptoms. I have discussed planned discharge with patient's brother today, and brother has no objection to this plan. Suicide and violence risk assessment on day of discharge both suggest lower imminent risk from mental illness, and the patient' s level of function is adequate for planned level of outpatient care. Patient has maximized benefit from this inpatient psychiatric hospital stay and will be discharged back to facility today with psychiatric follow-up as arranged by counselor. Patient is also to follow up with primary care. Patient to return to psychiatric emergency room for any concerning symptoms as part of a general safety plan. - Discharge Discharge Date: 02/15/18 - Discharge Diagnosis (1) Schizophrenia Diagnosis: Principal (Stable) Code(s): F20.9 - Schizophrenia, unspecified Status: Acute Discharge Disposition: Assisted Living Facility - Discharge Instructions Discharge Diet: Regular Diet Activities You Can Perform: Weight Bearing As Tolerat - Discharge Time > 30 minutes Mental Status Examination Appearance: Other (Fair) Consciousness: Alert Orientation: Person, Place (At least) Motor Activity: Other (No hand tremor, no cogwheeling, no dystonia, no dyskinesia, no other motor abnormalities noted.) Speech: Hesitant Language: Perseveration Fund of Knowledge: Adequate Attention and Concentration: Other (Fair) Memory: Unremarkable Mood: Appropriate Affect: Flat Thought Process & Associations: Intact Thought Content: Appropriate Hallucination Type: None Delusion Type: None Suicidal Ideation: No Suicidal Plan: No Suicidal Intention: No Homicidal Ideation: No Homicidal Plan: No Homicidal Intention: No Insight: Poor Judgment: Poor Mental Status Exam Remarks: Insight and judgment are chronically poor. Discharge/Advance Care Plan - Results Vital Signs: Last Vital Signs Temp 97.2 F L 02/15/18 06:06 Pulse 92 H 02/15/18 06:06 Resp 16 02/15/18 06:06 BP 135/62 02/15/18 06:06 Pulse Ox 98 02/14/18 16:00 Lab Results: Abnormal Lab Results 02/14/18 02/15/18 18:39 10:46 WBC 7.7 RBC 4.39 L Hgb 13.2 Hct 40.2 MCV 91.5 MCH 30.1 MCHC 32.9 RDW 14.1 Plt Count 207 MPV 9.3 Neut % (Auto) 67.6 Lymph % (Auto) 21.0 Clare % (Auto) 5.8 Eos % (Auto) 4.4 H Baso % (Auto) 1.2 Neut # (Auto) 5.2 Lymph # (Auto) 1.6 Clare # (Auto) 0.4 Eos # (Auto) 0.3 Baso # (Auto) 0.1 WBC Differential . Differential Comment Auto diff final Total Creatine Kinase 69 Troponin I Less than 0.02 L Laboratory Results Hemoglobin A1c 5.6 % (4.3-6.0) 01/26/18 09:40 Triglycerides 112 mg/dL (42-150) 01/26/18 09:40 Cholesterol 149 mg/dL (120-200) 01/26/18 09:40 LDL Cholesterol, Calc 94 mg/dL (0-99) 01/26/18 09:40 HDL Cholesterol 32.9 mg/dL (40.0-60.0) L 01/26/18 09:40 TSH 2.280 uIU/mL (0.358-3.740) 01/25/18 13:53 Summary of Procedures: None done Pending Results: None - Medications Number of antipsychotic medications at discharge: 2 Appropriate use of more than 1 antipsychotic med: Justification other than those in allowable values 1-3, document here: (Patient required multiple antipsychotics for stabilization.) - Discharge Care Plan Goals to Promote Your Health: * To prevent worsening of your condition and complications * To maintain your health at the optimal level Directions to Meet Your Goals: Take your medications as prescribed Follow your dietary instruction Follow activity as directed Keep your appointments as scheduled Take your immunizations and boosters as scheduled If your symptoms worsen call your PCP, if no PCP go to Urgent Care Center or Emergency Room For 02/01 questions related to your inpatient stay or results of tests pending at discharge, please contact Dr. Christoph William MD at Smoking is Dangerous to Your Health. Avoid second hand smoking (1) Schizophrenia Qualifiers: Schizophrenia type: paranoid schizophrenia Qualified Code(s): F20.0 - Paranoid schizophrenia (1) Schizophrenia Qualifiers: Schizophrenia type: paranoid schizophrenia Qualified Code(s): F20.0 - Paranoid schizophrenia
--- NOTE | 2018-02-16 00:37 | ECG ---
Date Performed: 02/14/2018 Time Performed: 19:25:00 PTAGE: 57 years EKG: Sinus rhythm NORMAL ECG PREVIOUS TRACING : 01/31/2018 13.49 Since the previous tracing, no significant change noted DOCTOR: Saleem Garcia Interpretating Date/Time 02/16/2018 00:36:09
== END 2018-02-15 13:50 ==
LOC: NEDAMB 16:36 → NEDA 18:07 → H270 19:46
PROVIDERS: ADMIT Psychiatry & Neurology Psychiatry; ATTEND Psychiatry & Neurology Psychiatry